=== PATIENT | female | born 1970 | race Caucasian/White ===

== ENCOUNTER → 2016-12-05 | Outpatient (CLI) | payer OTHER ==
[2016-12-06 12:28] LABS: Salmon IgE <0.35 kU/L (<0.35); Salmon IgE Class CLASS 0
[2016-12-12 08:29] LABS: Mis test requested (Blood) Walleye IgE
[2016-12-13 08:08] LABS: Mis test requested (Blood) Whitefish IgE
[2016-12-16 10:27] LABS: Mis test requested (Blood) Perch IgE
== END ==
LOC: LABWHC1 08:04
PROVIDERS: ATTEND Otolaryngology
DX: L50.0 Allergic urticaria (principal); J30.89 Other allergic rhinitis; B44.89 Other forms of aspergillosis
CPT/HCPCS: 36415; 86003

== ENCOUNTER → 2018-02-23 | Outpatient (CLI) | payer BC ==
--- NOTE | 2018-02-24 00:26 | MR ---
EXAMINATION TYPE: MR cspine/lspine wo con DATE OF EXAM: 02/23/2018 COMPARISON: NONE HISTORY: Neck and rt arm pain/weakness, LBP, left leg numbness/drop foot TECHNIQUE: Multiplanar, multisequence imaging of the lumbar spine and cervical spine is performed wit hout IV contrast. FINDINGS: The cervical vertebra have normal spacing and alignment. The posterior elements are intact. Cervical spinal cord has normal signal pattern. There is no evidence of edema. There is no spinal st enosis. Brainstem appears normal. There is no compression fracture. There is developmentally adequate spinal canal. There is no cervical paraspinal mass. The lumbar vertebra have normal spacing and alignment. Posterior elements are intact. Lumbar nerve ro ots appear normal. There is developmentally large spinal canal. The neural foramina appear widely pat ent. There is no lumbar paraspinal mass. There is no compression fracture. The visualized sacroiliac joints appear normal. IMPRESSION: Negative MR scan of the cervical spine. Negative MR scan of the lumbar spine.
== END | disposition home or self-care (01) ==
LOC: RADMRIMAIN 19:29
PROVIDERS: ATTEND Psychiatry & Neurology Neurology
DX: M54.12 Radiculopathy, cervical region (principal); M54.16 Radiculopathy, lumbar region
CPT/HCPCS: 72141; 72148

== ENCOUNTER 2019-08-11 07:40 | Day surgery (SDC) | payer BC ==
[2019-08-10 10:09] VITALS: BMI 29.7
[~2019-08-11 07:40] MED LIST: LACTATED RINGERS 1,000 ML IV SCH; LIDOCAINE 1% 20 ML VIAL (10MG/ML) FOR IV START INTRADERMA PRN
[2019-08-11 08:26] VITALS: TEMP 99
--- NOTE | 2019-08-11 08:29 | P.GSHP ---
History of Present Illness H&P Date: 08/11/19 CHIEF COMPLAINT: Colon screen HISTORY OF PRESENT ILLNESS: The patient is a 49-year-old female who presents for colon screen. Lower endoscopy was offered for further evaluation and management. PAST MEDICAL HISTORY: Please see list. PAST SURGICAL HISTORY: Please see list. MEDICATIONS: Please see list. ALLERGIES: Please see list. SOCIAL HISTORY: No illicit drug use FAMILY HISTORY: No reports of Crohn disease or ulcerative colitis. REVIEW OF ORGAN SYSTEMS: CONSTITUTIONAL: No reports of fevers or chills. PHYSICAL EXAM: VITAL SIGNS: Stable GENERAL: Well-developed pleasant in no acute distress. HEENT: No scleral icterus. Extraocular movements grossly intact. Moist buccal mucosa. NECK: Supple without lymphadenopathy. CHEST: Unlabored respirations. Equal bilateral excursions. CARDIOVASCULAR: Regular rate and rhythm. Distal 2+ pulses. ABDOMEN: Soft, nontender, nondistended. MUSCULOSKELETAL: No clubbing, cyanosis, or edema. ASSESSMENT: 1. Colon screen. PLAN: 1. Recommend proceeding with a lower endoscopy Past Medical History Past Medical History: Asthma, Diabetes Mellitus Additional Past Medical History / Comment(s): DIABETES- NO MEDS-WATCHES DIET., FREQUENT DIARRHEA. History of Any Multi-Drug Resistant Organisms: None Reported Past Surgical History: Hysterectomy, Orthopedic Surgery Additional Past Surgical History / Comment(s): PARTIAL HYSTERECOMY, ARTHROSCOPY SURGERY MARQUISE KNEES AND HIPS Past Anesthesia/Blood Transfusion Reactions: No Reported Reaction Additional Past Anesthesia/Blood Transfusion Reaction / Comment(s): STATES OCCASIONAL VERTIGO. ANXIETY WITH ANESTHESIA Past Psychological History: Anxiety Smoking Status: Former smoker Past Alcohol Use History: None Reported Additional Past Alcohol Use History / Comment(s): QUIT SMOKING 2011, SMOKED 2 PPD., STARTED SMOKING AGE 15. Past Drug Use History: None Reported - Past Family History Father Family Medical History: Cancer Additional Family Medical History / Comment(s): UNKNOWN TYPE OF CANCER Medications and Allergies Home Medications Medication Instructions Recorded Confirmed Type Atorvastatin Calcium [Lipitor] 20 mg PO HS 08/10/19 08/11/19 History Red Yeast Rice 1 dose PO DIRECTED 08/10/19 08/10/19 History Allergies Allergy/AdvReac Type Severity Reaction Status Date / Time No Known Allergies Allergy Verified 08/10/19 10:02 Surgical - Exam Vital Signs Temp Pulse Resp BP Pulse Ox 99.0 F 80 18 115/57 94 L 08/11/19 08:22 08/11/19 08:22 08/11/19 08:22 08/11/19 08:22 08/11/19 08:22
[2019-08-11] MEDS ORDERED: PROPOFOL 10 MG/ML 20 ML VIAL IV ONE (08:40)
[2019-08-11 09:12] VITALS: RESP 16
[2019-08-11 09:32] VITALS: BP 131/85; PULSE 64
--- NOTE | 2019-08-11 09:43 | P.PCN ---
Date of Procedure: 08/11/19 Description of Procedure: PREOPERATIVE DIAGNOSIS: Colonoscopy screening, first POSTOPERATIVE DIAGNOSIS: Colonoscopy screening, first Sigmoid diverticulosis Rectal polyp OPERATION: Colonoscopy with hot snare polypectomy at rectum Colonoscopy to the ileocecal valve SURGEON: Chrystal Pelayo MD. ANESTHESIA: MAC. INDICATIONS: The patient is a 49-year-old female who presents for her first colonoscopy screening. Benefits and risks were described and informed consent was obtained. DESCRIPTION OF PROCEDURE: The patient had undergone Golytely prep. She had been brought into the operating room and laid in the left lateral decubitus position. After adequate intravenous sedation, the rectum was examined with 2% lidocaine jelly. No external hemorrhoids were encountered. The rectal tone was within normal limits. No lesions were palpated in the rectal vault. An Olympus colonoscope was advanced until the ileocecal valve was clearly viewed. The prep was good. The scope was removed with visualization of each mucosal fold. Sigmoid diverticulosis was encountered. At 10 cm, a rectal colonic polyp of 8 mm with snare polypectomy. No evidence of focal colitis was found. Retroflexion of the scope demonstrated no internal hemorrhoids. The colon was desufflated. The patient had tolerated the procedure well. Withdrawal time was over 6 minutes. FINDINGS: Aronchick preparation quality scale 2 (1-5) No internal hemorrhoids No external prolapsed hemorrhoids. No arteriovenous malformations. Removal of 1 polyp: -At 10 cm, a rectal colon polyp of 8 mm with snare polypectomy. No focal colitis. Sigmoid diverticulosis with moderate redundancy RECOMMENDATIONS: Lower endoscopy in 3 years2021 Plan - Discharge Summary New Discharge Prescriptions: No Action Atorvastatin Calcium [Lipitor] 20 mg PO HS Red Yeast Rice 1 dose PO DIRECTED Discharge Medication List Atorvastatin Calcium [Lipitor] 20 mg PO HS 08/10/19 [History] Red Yeast Rice 1 dose PO DIRECTED 08/10/19 [History] Follow up Appointment(s)/Referral(s): Chrystal Pelayo MD [STAFF PHYSICIAN] - As Needed Patient Instructions/Handouts: Colorectal Polyps (DC), Diverticulosis Diet (GEN), Diverticulosis (DC) Activity/Diet/Wound Care/Special Instructions: Repeat colonoscopy 3 years, 2021 Discharge Disposition: HOME SELF-CARE
== END 2019-08-11 09:46 | disposition home or self-care (01) ==
LOC: ORWHC2ENDO 07:40
PROVIDERS: ATTEND Surgery Plastic and Reconstructive Surgery
DX: Z12.11 Encounter for screening for malignant neoplasm of colon (principal); K57.30 Diverticulosis of large intestine without perforation or abscess without bleeding; K62.1 Rectal polyp; K64.8 Other hemorrhoids; E11.9 Type 2 diabetes mellitus without complications; J45.909 Unspecified asthma, uncomplicated; F41.9 Anxiety disorder, unspecified; E78.5 Hyperlipidemia, unspecified; Z79.899 Other long term (current) drug therapy; Z87.891 Personal history of nicotine dependence; Z90.710 Acquired absence of both cervix and uterus; Z98.890 Other specified postprocedural states
CPT/HCPCS: 88305; 45385; J2704

== ENCOUNTER → 2019-10-06 | Outpatient (CLI) | payer BC ==
--- NOTE | 2019-10-06 13:35 | BD ---
EXAMINATION TYPE: Axial Bone Density DATE OF EXAM: 10/06/2019 COMPARISON: NONE CLINICAL HISTORY: Height: 5 FT 7 IN Weight: 197 FRAX RISK QUESTIONS: Alcohol (3 or more units per day): NO Family History (Parent hip fracture): NO Glucocorticoids (More than 3mos): YES (Ex: prednisone, prednisolone, methylprednisolone, dexamethasone, and hydrocortisone). History of Fracture in Adulthood: NO Secondary Osteoporosis: 1. Type 1 Diabetes: NO 2. Hyperthyroidism: NO 3. Menopause before 45: YES 4. Malnutrition: NO 5. Chronic liver disease: NO Rheumatoid Arthritis: NO Current Tobacco Use: NO RISK FACTORS HISTORY OF: Active: YES Postmenopausal woman: OVARIES REMOVED ONLY AT 38 MEDICATIONS: Additional Medications: LIPITOR Additional History: EXAM MEASUREMENTS: Bone mineral densitometry was performed using the [employer]. Bone mineral density as measured about the Lumbar spine is: ----- L1-L4(G/cm2): 1.177 T Score Values are as follows: ----- L2: -0.3 ----- L3: 0.1 ----- L4: -0.1 ----- L1-L4: 0.0 BASELINE Bone mineral density about the R hip (g/cm2): 1.161 Bone mineral density about the L hip (g/cm2): 1.137 T Score values are as follows: -----R Neck: 0.9 -----L Neck: 0.7 -----R Total: 2.0 -----L Total: 1.9 BASELINE IMPRESSION: Normal (Values between +1 and -1 indicate normal bone mass). Consider repeating this study in 5 year s or sooner if there is some new clinical indication. NOTE: T-SCORE=SD OF THE YOUNG ADULT MEAN.
--- NOTE | 2019-10-07 14:06 | MM ---
Reason for exam: screening (asymptomatic). History: Patient is postmenopausal. Reductions of both breasts. Benign excisional biopsy of both breasts. Took hormonal contraceptives for 25 years. Physical Findings: A clinical breast exam by your physician is recommended on an annual basis and results should be correlated with mammographic findings. MG Screening Mammo w CAD Bilateral CC and MLO view(s) were taken. No prior studies available for comparison. The breast tissue is heterogeneously dense. This may lower the sensitivity of mammography. Benign appearing bilateral calcifications. There is also a 2mm group of upper slightly outer right calcifications 11cm from nipple and left 1.2cm group of upper outer quadrant calcifications 11-12cm from nipple. 7mm right lateral asymmetry 9cm from nipple. ASSESSMENT: Incomplete: need additional imaging evaluation, BI-RAD 0 RECOMMENDATION: Ultrasound of both breasts. [facility] will attempt to contact patient to return for ultrasound.
== END | disposition home or self-care (01) ==
LOC: RADMAMWWP 08:09
PROVIDERS: ATTEND Obstetrics & Gynecology
DX: Z12.31 Encounter for screening mammogram for malignant neoplasm of breast (principal); N95.1 Menopausal and female climacteric states
CPT/HCPCS: 77067; 77080

== ENCOUNTER → 2019-10-19 | Outpatient (CLI) | payer BC ==
--- NOTE | 2019-10-20 13:16 | MM ---
Reason for exam: additional evaluation requested from abnormal screening. Last mammogram was performed less than 1 month ago. History: Patient is postmenopausal. Reductions of both breasts. Benign excisional biopsy of both breasts. Took hormonal contraceptives for 25 years. Physical Findings: Nurse did not find any significant physical abnormalities on exam. MG Work Up Mamm w CAD BILAT Bilateral CC with magnification, LM with magnification, and LM view(s) were taken. Spot compression CC view(s) were taken of the right breast. Prior study comparison: October 06, 2019, bilateral MG screening mammo w CAD. The breast tissue is heterogeneously dense. This may lower the sensitivity of mammography. There is a 6mm group of lower outer quadrant calcifications on the right that are pleomorphic, biopsy recommended. On the left there area loosely grouped calcifications spanning 10mm. Few of these layer. Precautionary 6 month follow up for the non-layering calcifications. The previously seen abnormality resolves on additional views and appears as fibroglandular tissue compatible with summation on the right breast. These results were verbally communicated with the patient and result sheet given to the patient on 10/19/19. ASSESSMENT: Suspicious, BI-RAD 4 RECOMMENDATION: Stereotactic core biopsy of the right breast. Called Dr. Corrigan's office with mammographic findings and has scheduled an appointment for the patient for 11/16/19 at 10:[address] Pelayo. Biopsy scheduled for 10/21/19 at 10:20. PRELIMINARY REPORT CALLED AND FAXED TO DR. PELAYO ON 10/20/19.
== END | disposition home or self-care (01) ==
LOC: RADMAMWWP 14:47
PROVIDERS: ATTEND Obstetrics & Gynecology
DX: R92.8 Other abnormal and inconclusive findings on diagnostic imaging of breast (principal)
CPT/HCPCS: 77066

== ENCOUNTER → 2019-10-21 | Day surgery (SDC) | payer BC ==
[2019-10-21 09:41] VITALS: RESP 16
[2019-10-21 11:18] VITALS: BP 102/71; PULSE 78; TEMP 97.5
--- NOTE | 2019-10-21 13:19 | MM ---
EXAMINATION TYPE: MG stereo VAD BX RT DATE OF EXAM: 10/21/2019 COMPARISON: Mammogram dated 10/19/2019 CLINICAL HISTORY: Indeterminate right breast calcifications for which dedicated guided biopsy was recommended. TECHNIQUE: Stereotactic guided core biopsy of right breast. FINDINGS: The procedure of stereotactic guided core biopsy was explained to the patient. Benefits, alternatives, and risks were discussed. An informed consent was then obtained. Preprocedural timeout was performed. The shortness pathway for biopsy was chosen. Shortness pathway was CC from below approach. Preprocedural localization images were obtained and a 6 mm group of calcifications within the lower outer quadrant of the right breast was demonstrated. Coordinates were calculated. Subsequently 10 cc of lidocaine without epinephrine was utilized to anesthetize the skin and deeper subcutaneous soft tissues. The needle was advanced to the appropriate depth. Prefire images were obtained ensuring appropriate location. Postfire injection of 10 cc of lidocaine with epinephrine was utilized to anesthetize the site of biopsy. A vacuum assisted biopsy gun was used to obtain 7 core samples. Only few calcifications were identified in the sample. 3 additional core samples were obtained however no further samples were obtained given patient pain and movement throughout the exam. The patient tolerated the procedure well without any immediate complication. The patient was kept in the radiology department for short stay after the procedure and then discharged home in stable condition. Few targeted calcifications are identified in specimen mammogram. Post biopsy mammogram shows the T-shaped biopsy marker to appear in satisfactory position relative to the targeted area of concern on the preprocedure images without migration. IMPRESSION: SUCCESSFUL, UNCOMPLICATED STEREOTACTIC GUIDED CORE BIOPSY OF A NEW INTERMEDIATE SUSPICION A 6 MM GROUP OF CALCULATIONS WITHIN THE LOWER OUTER QUADRANT OF THE RIGHT BREAST, FULL PATHOLOGY RESULTS TO FOLLOW. Pathology Results: Benign RIGHT BREAST, NEEDLE CORE BIOPSIES: Benign breast parenchyma with fibroadenomatoid changes and fibrocystic spectrum disease. Multifocal intraductal mineralizations are noted. Recommendation Follow up mammogram of both breasts in 6 months. 6 month follow up diagnostic mammogram bilaterally. (Right breast: 6 month post biopsy follow up) (Left breast: 6 month for probably benign calcifications) MTDD
== END ==
LOC: RADMAMWWP 09:11
PROVIDERS: ATTEND Surgery Plastic and Reconstructive Surgery
DX: D24.1 Benign neoplasm of right breast (principal); N60.11 Diffuse cystic mastopathy of right breast; N64.89 Other specified disorders of breast
CPT/HCPCS: 88305; 19081; A4648; J2001

== ENCOUNTER → 2020-07-13 | Outpatient (CLI) | payer BC ==
--- NOTE | 2020-07-18 09:37 | MM ---
Reason for exam: additional evaluation requested from prior study. Last mammogram was performed 9 months ago. History: Patient is postmenopausal. Benign MG stereo VAD BX RT of the right breast, October 21, 2019. Reductions of both breasts, 1991. Benign excisional biopsy of both breasts. Took hormonal contraceptives for 25 years. Physical Findings: Nurse did not find any significant physical abnormalities on exam. MG Diagnostic Mammo w CAD MARQUISE Bilateral CC and MLO view(s) were taken. Prior study comparison: October 19, 2019, bilateral MG work up mamm w CAD BILAT. October 06, 2019, bilateral MG screening mammo w CAD. The breast tissue is heterogeneously dense. This may lower the sensitivity of mammography. Finding: There are typically benign dystrophic, round calcifications in both breasts. There is a group of heterogeneous calcifications that persists 13mm superior to clip. These results were verbally communicated with the patient and result sheet given to the patient on 07/13/20. ASSESSMENT: Suspicious, BI-RAD 4 RECOMMENDATION: Stereotactic core biopsy of the right breast. Called Dr. Lock's office with mammographic findings and has scheduled an appointment for the patient for 08/03/20 at 1:[address] Meneses. Biopsy scheduled for 08/10/20 at 8:00. PRELIMINARY REPORT CALLED AND FAXED TO DR. MENESES ON 07/18/20.
== END | disposition home or self-care (01) ==
LOC: RADMAMWWP 12:32
PROVIDERS: ATTEND Family Medicine
DX: N64.89 Other specified disorders of breast (principal)
CPT/HCPCS: 77066

== ENCOUNTER → 2020-12-04 | Outpatient (CLI) | payer BC ==
[2020-12-04 12:15] LABS: HCT 43.3 % (34.0-46.0); HGB 14.7 gm/dL (11.4-16.0); MCH 30.8 pg (25.0-35.0); MCHC 33.9 g/dL (31.0-37.0); Mean Platelet Volume 7.1; Platelet Count 300 k/uL (150-450); RBC 4.76 m/uL (3.80-5.40); RDW 13.3 % (11.5-15.5); WBC 10.9 k/uL (3.8-10.6)
[2020-12-04 12:25] LABS: African American GFR (CKD) >90 (>60 ml/min/1.73 sqM); Anion Gap 8 mmol/L; Blood Urea Nitrogen 17 mg/dL (7-17); Carbon Dioxide 29 mmol/L (22-30); Chloride 99 mmol/L (98-107); Non-African American GFR(CKD) 86 (>60 ml/min/1.73 sqM); Potassium 4.3 mmol/L (3.5-5.1); Sodium 136 mmol/L (137-145)
== END | disposition home or self-care (01) ==
LOC: LABPAT 10:15
PROVIDERS: ATTEND Internal Medicine Clinical Cardiac Electrophysiology
DX: Z01.812 Encounter for preprocedural laboratory examination (principal); I48.0 Paroxysmal atrial fibrillation
CPT/HCPCS: 80051; 82565; 84520; 85027

== ENCOUNTER 2020-12-14 09:38 | Day surgery (SDC) | payer BC ==
[2020-12-11 15:54] VITALS: BMI 30.5
[~2020-12-14 09:38] MED LIST changes: -LACTATED RINGERS 1,000 ML IV SCH; -LIDOCAINE 1% 20 ML VIAL (10MG/ML) FOR IV START INTRADERMA PRN; +SODIUM CHLORIDE 0.9% 1,000 ML IV SCH
[2020-12-14 10:00] LABS: Glucose,Whole Blood 131 mg/dL (75-99)
[2020-12-14] MEDS ORDERED: MIDAZOLAM 2 MG/2 ML VIAL IVP ONE (10:04)
[2020-12-14 10:51] LABS: Basophils # (A) 0.1 k/uL (0-0.2); Basophils % (A) 1 %; Eosinophils # (A) 0.2 k/uL (0-0.7); Eosinophils % (A) 2 %; HCT 43.7 % (34.0-46.0); HGB 14.8 gm/dL (11.4-16.0); Lymphocytes # (A) 2.2 k/uL (1.0-4.8); Lymphocytes % (A) 22 %; MCH 29.9 pg (25.0-35.0); MCHC 33.8 g/dL (31.0-37.0); MCV 88.4 fL (80.0-100.0); Monocytes # (A) 0.8 k/uL (0-1.0); Monocytes % (A) 8 %; Neutrophils # (A) 6.9 k/uL (1.3-7.7); Neutrophils % (A) 67 %; Platelet Count 292 k/uL (150-450); RBC 4.95 m/uL (3.80-5.40); RDW 13.9 % (11.5-15.5); WBC 10.3 k/uL (3.8-10.6)
[2020-12-14] MEDS ORDERED: LIDOCAINE 1% INJ 10MG/ML (20 ML MDV) ONE (13:15)
[2020-12-14] MEDS ORDERED: LIDOCAINE 1% INJ 10MG/ML (20 ML MDV) SQ ONE (13:49)
[2020-12-14] MEDS ORDERED: fentaNYL (PF) 50 MCG/ML 2 ML AMP ONE (13:50)
[2020-12-14] MEDS ORDERED: MIDAZOLAM 2 MG/2 ML VIAL ONE (13:50)
[2020-12-14] MEDS ORDERED: PROPOFOL 10 MG/ML 20 ML VIAL IV ONE (13:50)
[2020-12-14] MEDS ORDERED: SUCCINYLCHOLINE CHLORIDE 100 MG/5 ML SYR IV ONE (13:50)
[2020-12-14] MEDS ORDERED: HEPARIN SODIUM,PORCINE 5,000 UNIT/ML 1 ML VIAL ONE (13:50)
[2020-12-14] MEDS ORDERED: ALBUTEROL HFA INHALER INHALATION PRN (15:17)
[2020-12-14] MEDS ORDERED: HYDROcodone/APAP 5-325MG 1 EACH TAB PO PRN (15:23)
--- NOTE | 2020-12-14 15:29 | P.EPPROC ---
- EP Procedure Note Electrophysiology Procedure Note: Diagnosis Paroxysmal atrial fibrillation Atrial tachycardia, paroxysmal Symptomatic History of hypertension and type 2 diabetes On ELIQUIS 5 mg twice daily Result Pedunculated mobile mass in the left atrial appendage on intracardiac echo Coronary sinus electrograms reveal an atrial tachycardia cycle length of about 220 ms, concentric activation Normal LV and RV size and function, no pericardial effusion on intracardiac echo Common left-sided pulmonary veins A. fib ablation procedure aborted on account of left atrial appendage thrombus Details Patient was brought to the EP lab in a fasting state with informed consent was obtained prior to the procedure the right groin is prepped and draped as a protocol venous sheaths were placed in the right femoral veins Via this a coronary sinus catheter was placed in the coronary sinus. Patient was in an atrial tachycardia cycle length of about 220 ms, with concentric activation In intracardiac echo cath was placed No pericardial effusion noted Pedunculated mobile pus in the left atrial appendage noted Normal LV and RV size and function noted In view of the left atrial appendage pedunculated mobile mass consistent with a thrombus, the procedure was aborted This was discussed with the patient's Plan Switched Pradaxa 150 g twice daily Aspirin 81 mg by mouth daily Continue diltiazem and flecainide Repeat MERARY in 6 weeks If no mass or thrombus then proceed with cryoablation of the pulmonary veins and atrial tachycardia ablation
--- NOTE | 2020-12-14 15:31 | P.PRLE ---
RE: Meera Grimes Dear Nancie Estes underwent a diagnostic EP study and at the outset replaced and intracardiac echo catheter in the right atrium to evaluate for intracardiac mass or thrombi She has a pedunculated, mobile mass in the left atrial appendage consistent with a left atrial appendage thrombus She is on ELIQUIS 5 g twice daily At this point we did not proceed any further with the EP study and ablation. I would recommend Switching to Pradaxa 150 mg twice daily since it has a slightly different mechanism of anticoagulant action as compared to allow pus Adding aspirin 81 mg by mouth daily Continue all other cardiac medications We will perform a MERARY in about 6 weeks and once we ensured that the left atrial appendage thrombus has resolved, only then will be proceed with in A. fib ablation Thank you for entrusting me with the care of the patient Warm regards Sincerely Gonzalo Guerrero
[2020-12-14 15:58] LABS: Glucose,Whole Blood 94 mg/dL (75-99)
[2020-12-14] MEDS: DILTIAZEM 125 MG in SODIUM CHLORIDE 0.9% 100 ML IV SCH (16:15)
[2020-12-14] MEDS ORDERED: ACETAMINOPHEN IV (For NPO) 1,000 MG in EMPTY BAG 1 BAG IVPB ONE (17:00)
[2020-12-14] MEDS: DILTIAZEM CD 240 MG CAP.ER.24H PO SCH (17:32)
[2020-12-14] MEDS: ACETAMINOPHEN TAB 325 MG TAB PO PRN (19:41)
[2020-12-14] MEDS: DABIGATRAN 150 MG CAP PO SCH (19:42)
[2020-12-14] MEDS: FLECAINIDE 50 MG TAB PO SCH (19:42)
[2020-12-14] MEDS: ASPIRIN 325 MG TAB PO SCH (19:43)
[2020-12-14] MEDS: SYMBICORT 80-4.5 MCG INHALER INHALATION SCH (20:17)
[2020-12-14] MEDS: LINAGLIPTIN 5 MG TABLET PO SCH (21:10)
[2020-12-14 21:30] LABS: Glucose,Whole Blood 148 mg/dL (75-99)
[2020-12-14] MEDS ORDERED: HYDROmorphone 0.5 MG/0.5 ML SYRINGE IVP STA (21:36)
[2020-12-15] MEDS: DILTIAZEM 125 MG in SODIUM CHLORIDE 0.9% 100 ML IV SCH ×3 (06:03→16:28)
[2020-12-15 06:30] LABS: Glucose,Whole Blood 106 mg/dL (75-99)
[2020-12-15] MEDS: ATORVASTATIN 40 MG TAB PO SCH (09:01)
[2020-12-15] MEDS: DABIGATRAN 150 MG CAP PO SCH ×2 (09:01→20:46)
[2020-12-15] MEDS: ASPIRIN 325 MG TAB PO SCH (09:02)
[2020-12-15] MEDS: DILTIAZEM CD 240 MG CAP.ER.24H PO SCH (09:02)
[2020-12-15] MEDS: FLECAINIDE 50 MG TAB PO SCH ×2 (09:02→20:46)
[2020-12-15] MEDS: ACETAMINOPHEN TAB 325 MG TAB PO PRN (09:02)
[2020-12-15] MEDS: VICTOZA SQ SCH (09:04)
[2020-12-15] MEDS: SYMBICORT 80-4.5 MCG INHALER INHALATION SCH ×2 (09:13→20:06)
[2020-12-15] MEDS ORDERED: DILTIAZEM CD 120 MG CAP.ER.24H PO STA (10:56)
[2020-12-15] MEDS: HYDROmorphone 1 MG/ML 1 ML SYRINGE IVP PRN ×4 (11:18→22:54)
[2020-12-15 12:13] LABS: Glucose,Whole Blood 101 mg/dL (75-99)
--- NOTE | 2020-12-15 12:14 | P.PN ---
Subjective Progress Note Date: 12/15/20 HISTORY OF PRESENT ILLNESS: This is a 50-year-old female who was scheduled to undergo elective ablation. Patient was found to have a pedunculated mobile mass in the left atrial appen dage. Ablation was aborted. Patient was switched to Pradaxa twice a day and aspirin was added to her medication regimen. Patient remains in atrial flutter this morning. Heart rate is controlled. She remains on IV Cardizem at 10 mg an hour. Patient states she has been Eliquis since April 2020. She reports being compliant her with medications and not missing any doses of Eliquis. PHYSICAL EXAM: VITAL SIGNS: Reviewed. GENERAL: Well-developed in no acute distress. NECK: Supple. No JVD or thyromegaly LUNGS: Respirations even and unlabored. Lungs essentially clear to auscultation bilaterally. HEART: Irregular rate and rhythm. S1 and S2 heard. EXTREMITIES: Normal range of motion. No clubbing or cyanosis. Peripheral pulses intact. No lower extremity edema. Right groin with small hematoma present and tenderness with palpation. No hematoma of left groin. ASSESSMENT: Left atrial appendage thrombus, s/p failed therapy with Eliquis Paroxysmal atrial fibrillation Paroxysmal atrial tachycardia Hypertension Diabetes mellitus PLAN: Continue IV Cardizem until tomorrow Increase Cardizem CD to 360 mg daily Continue flecainide Continue Pradaxa 150 mg twice a day and aspirin 81 mg daily Fem stop to right groin. Apply for 3 hours, then remove for 2 hours and let patient ambulate, then repeat process until tomorrow morning Case management verifying coverage of Pradaxa which requires prior authorization per Further recommendations pending patient course Nurse practitioner note has been reviewed by physician. Signing provider agrees with the documented findings, assessment, and plan of care. Objective - Vital Signs Vital signs: Vital Signs Temp 98.2 F 12/15/20 11:00 Pulse 81 12/15/20 11:00 Resp 16 12/15/20 11:00 BP 91/56 12/15/20 11:00 Pulse Ox 97 12/15/20 11:00 Intake & Output 12/14/20 12/15/20 12/15/20 18:59 06:59 18:59 Intake Total 670 900 120 Output Total 1150 1450 Balance -480 -550 120 Weight 89.4 kg 91.3 kg Intake: IV 670 Invasive Line 1 10 Invasive Line 2 10 Intake, IV Titration 160 Amount Sodium Chloride 0.9% 1, 160 000 ml @ 20 mls/hr IV . Q24H [facility] Rx#:[id number] Oral 740 120 Output: Urine 1150 1450 Uretheral (Quarles) 1000 Other: Voiding Method Indwelling Catheter Indwelling Catheter # Voids 1 - Labs CBC & Chem 7: 12/14/20 10:00 Labs: Abnormal Lab Results - Last 24 Hours (Table) 12/14/20 12/15/20 Range/Units 20:21 06:17 POC Glucose (mg/dL) 148 H 106 H (75-99) mg/dL
[2020-12-15 17:01] LABS: Glucose,Whole Blood 169 mg/dL (75-99)
[2020-12-15 20:07] LABS: Glucose,Whole Blood 126 mg/dL (75-99)
[2020-12-15] MEDS: LINAGLIPTIN 5 MG TABLET PO SCH (20:46)
[2020-12-16] MEDS: DILTIAZEM 125 MG in SODIUM CHLORIDE 0.9% 100 ML IV SCH (02:11)
[2020-12-16 04:04] VITALS: RESP 16
[2020-12-16] MEDS: HYDROmorphone 1 MG/ML 1 ML SYRINGE IVP PRN (04:12)
[2020-12-16 07:09] LABS: Glucose,Whole Blood 133 mg/dL (75-99)
[2020-12-16] MEDS: SYMBICORT 80-4.5 MCG INHALER INHALATION SCH (08:09)
[2020-12-16] MEDS: FLECAINIDE 50 MG TAB PO SCH (08:40)
[2020-12-16] MEDS: DABIGATRAN 150 MG CAP PO SCH (08:41)
[2020-12-16] MEDS: ATORVASTATIN 40 MG TAB PO SCH (08:41)
[2020-12-16] MEDS: VICTOZA SQ SCH (08:42)
[2020-12-16] MEDS ORDERED: ASPIRIN 81 MG PO SCH (09:00)
[2020-12-16] MEDS ORDERED: DILTIAZEM CD 180 MG CAP.ER.24H PO SCH (09:00)
[2020-12-16 11:57] LABS: Glucose,Whole Blood 210 mg/dL (75-99)
--- NOTE | 2020-12-16 12:01 | P.DS ---
Providers Attending physician: Gonzalo Guerrero Primary care physician: [facility] Course: This is a 50-year-old female who was scheduled to undergo elective ablation. Patient was found to have a pedunculated mobile mass in the left atrial appendage. Ablation was aborted. Patient was switched to Pradaxa 150mg twice a day and aspirin was added to her medication regimen. She is to continue Cardizem and flecainide. Patient is to have a repeat MERARY done in 6 weeks. If no mass or thrombus noted within proceed with cryoablation of the pulmonary veins and atrial tachycardia ablation. The patient was discharged home today in stable condition. Please see EMR for further hospital course details Discharge Diagnosis Left atrial appendage thrombus Paroxysmal atrial fibrillation Paroxysmal atrial tachycardia Hypertension Diabetes mellitus Nurse practitioner note has been reviewed by physician. Signing provider agrees with the documented findings, assessment, and plan of care. Plan - Discharge Summary Discharge Rx Participant: No New Discharge Prescriptions: New Dabigatran [Pradaxa] 150 mg PO BID #60 cap Aspirin 81 mg PO DAILY #60 chewable Continue Diltiazem HCl [Diltiazem HCl 24Hr ER (Cd)] 240 mg PO DAILY Flecainide Acetate [Tambocor] 100 mg PO Q12HR Atorvastatin [Lipitor] 40 mg PO DAILY Discontinued Apixaban [Eliquis] 5 mg PO BID No Action Victoza 1.8 ml SQ QAM Albuterol Inhaler [Ventolin Hfa Inhaler] 2 puff INHALATION RT-TID PRN PRN Reason: Shortness Of Breath sitaGLIPtin [Januvia] 100 mg PO HS Budesonide/Formoterol Fumarate [Symbicort 80-4.5 Mcg Inhaler] 2 puff INHALATION BID Discharge Medication List Albuterol Inhaler [Ventolin Hfa Inhaler] 2 puff INHALATION RT-TID PRN 12/11/20 [History] Atorvastatin [Lipitor] 40 mg PO DAILY 12/11/20 [History] Budesonide/Formoterol Fumarate [Symbicort 80-4.5 Mcg Inhaler] 2 puff INHALATION BID 12/11/20 [History] Diltiazem HCl [Diltiazem HCl 24Hr ER (Cd)] 240 mg PO DAILY 12/11/20 [History] Flecainide Acetate [Tambocor] 100 mg PO Q12HR 12/11/20 [History] Victoza 1.8 ml SQ QAM 12/11/20 [History] sitaGLIPtin [Januvia] 100 mg PO HS 12/11/20 [History] Aspirin 81 mg PO DAILY #60 chewable 12/15/20 [Rx] Dabigatran [Pradaxa] 150 mg PO BID #60 cap 12/15/20 [Rx] Follow up Appointment(s)/Referral(s): Gonzalo Guerrero MD [STAFF PHYSICIAN] - 1 Week Patient Instructions/Handouts: Atrial Flutter (ED), Transesophageal Echocardiogram (DC) Activity/Diet/Wound Care/Special Instructions: Pradaxa covered by insurance and [facility]
[2020-12-16 12:12] VITALS: BP 99/64; PULSE 98; TEMP 98
== END 2020-12-16 13:55 | disposition home or self-care (01) ==
LOC: CATHEP 09:38 → 3SCARD 14:50 → CATHEP 12-16 13:55
PROVIDERS: ATTEND Internal Medicine Clinical Cardiac Electrophysiology
DX: I48.0 Paroxysmal atrial fibrillation (principal); I51.3 Intracardiac thrombosis, not elsewhere classified; I48.3 Typical atrial flutter; I47.1 Supraventricular tachycardia; I10 Essential (primary) hypertension; E11.9 Type 2 diabetes mellitus without complications; Z79.01 Long term (current) use of anticoagulants; E78.5 Hyperlipidemia, unspecified; Z82.49 Family history of ischemic heart disease and other diseases of the circulatory system; Z72.0 Tobacco use; Z79.84 Long term (current) use of oral hypoglycemic drugs; Z79.51 Long term (current) use of inhaled steroids; Z79.899 Other long term (current) drug therapy; Z88.0 Allergy status to penicillin
CPT/HCPCS: 94640 ×3; 93662; 93620; 85025; C1769 ×4; C1894 ×2; C1730; C1759; C1893; C1766; J2250; J1644; J2001; J3010; J1170 ×3; J0131; J0330; J2704; 93619

== ENCOUNTER → 2021-01-22 | Outpatient (CLI) | payer BC ==
[2021-01-22 11:18] LABS: HCT 37.8 % (34.0-46.0); HGB 13.1 gm/dL (11.4-16.0); MCHC 34.7 g/dL (31.0-37.0); MCV 89.4 fL (80.0-100.0); Mean Platelet Volume 7.2; Platelet Count 397 k/uL (150-450); RBC 4.23 m/uL (3.80-5.40); WBC 11.7 k/uL (3.8-10.6)
[2021-01-22 11:29] LABS: Potassium 4.4 mmol/L (3.5-5.1)
== END | disposition home or self-care (01) ==
LOC: LABPAT 09:28
PROVIDERS: ATTEND Internal Medicine Clinical Cardiac Electrophysiology
DX: Z01.812 Encounter for preprocedural laboratory examination (principal); I48.0 Paroxysmal atrial fibrillation
CPT/HCPCS: 36415; 80051; 82565; 84520; 85027

== ENCOUNTER 2021-01-30 06:16 | Day surgery (SDC) | payer BC ==
[2021-01-30 06:53] VITALS: TEMP 98.2
[2021-01-30] MEDS ORDERED: SODIUM CHLORIDE 0.9% 500 ML 500 ML IV ONE (06:54)
[2021-01-30 06:56] LABS: Glucose,Whole Blood 135 mg/dL (75-99)
[2021-01-30] MEDS ORDERED: fentaNYL (PF) 50 MCG/ML 2 ML AMP ONE (07:17)
[2021-01-30] MEDS: BENZOCAINE SPRAY 1 CAN MUCOUS MEM ONE ×2 (07:32→07:46)
[2021-01-30] MEDS ORDERED: MIDAZOLAM 2 MG/2 ML VIAL IV ONE ×2 (07:49→07:53)
[2021-01-30] MEDS: fentaNYL (PF) 50 MCG/ML 2 ML AMP IV ONE ×2 (07:49→07:51)
[2021-01-30 08:03] VITALS: RESP 16
--- NOTE | 2021-01-30 08:29 | P.TEE ---
Description of Procedure(s): Procedure performed: Transesophageal Echocardiogram with color flow doppler, pulsed wave doppler and continuous wave doppler, moderate conscious sedation Moderate conscious sedation: Moderate conscious sedation was supplied with direct supervision of myself using Versed and Fentanyl. Complications: none Indications: Left atrial appendage thrombus History: Patient is a pleasant 50-year-old female with history of hypertension, hyperlipidemia, diabetes mellitus type 2, paroxysmal atrial fibrillation. She has been fairly symptomatic from atrial fibrillation and therefore was evaluated by Dr. Guerrero who performed ICE which showed a pedunculated ROCIO mass/ thrombus. She was placed on Pradaxa and aspirin and was scheduled for repeat MERARY to evaluate if there is any thrombus or mass. PROCEDURE: After the risks, benefits and alternatives of the above mentioned procedure was explained in detail with the patient, informed consent was obtained. Patient was brought to the lab in a fasting state. Patient was given IV Versed and Fentanyl for sedation. The throat was sprayed with Hurricane to anesthetize the throat. A lubricated Omni probe was then introduced into the esophagus and stomach and multiple views were obtained. 2D echo with color flow doppler, pulsed wave doppler and continuous wave doppler was utilized. Agitated saline bubbles were injected to assess for any intra-atrial shunt. The probe was then removed. Patient tolerated the procedure well. Patient was transferred to the post procedure area in stable and satisfactory condition. FINDINGS: 1. The aortic valve is tricuspid and functions normal without any stenosis or regurgitation. 2. The mitral valve appears be normal with trace mitral regurgitation. 3. Tricuspid valve appears to be normal. 4. There is a small PFO noted. 5. Left atrial appendage is free of clot. 6. Left ventricular size and function appear to be normal with ejection fraction 60%.
[2021-01-30 08:40] VITALS: PULSE 112
[2021-01-30 09:15] VITALS: BP 99/64
== END 2021-01-30 09:17 | disposition home or self-care (01) ==
LOC: CATHCVL 06:16
PROVIDERS: ATTEND Internal Medicine
DX: I51.3 Intracardiac thrombosis, not elsewhere classified (principal); I48.0 Paroxysmal atrial fibrillation; I34.0 Nonrheumatic mitral (valve) insufficiency; E78.5 Hyperlipidemia, unspecified; Z20.822 Contact with and (suspected) exposure to COVID-19; Z82.49 Family history of ischemic heart disease and other diseases of the circulatory system; I10 Essential (primary) hypertension; E11.9 Type 2 diabetes mellitus without complications; Z72.0 Tobacco use; Q21.1 Atrial septal defect; Z79.01 Long term (current) use of anticoagulants; Z79.02 Long term (current) use of antithrombotics/antiplatelets; Z79.82 Long term (current) use of aspirin; Z79.51 Long term (current) use of inhaled steroids; Z79.899 Other long term (current) drug therapy; Z88.0 Allergy status to penicillin
CPT/HCPCS: 93312; 93320; 93325; 87635; J2250; J3010

== ENCOUNTER 2021-02-12 09:46 | Day surgery (SDC) | payer BC ==
[2021-02-08 10:56] VITALS: BMI 30.5
[2021-02-12 10:13] LABS: Glucose,Whole Blood 132 mg/dL (75-99)
[2021-02-12 10:27] LABS: Basophils # (A) 0.1 k/uL (0-0.2); Basophils % (A) 1 %; Eosinophils # (A) 0.2 k/uL (0-0.7); Eosinophils % (A) 3 %; HGB 13.9 gm/dL (11.4-16.0); Lymphocytes # (A) 1.5 k/uL (1.0-4.8); Lymphocytes % (A) 15 %; MCH 31.2 pg (25.0-35.0); MCHC 34.6 g/dL (31.0-37.0); Mean Platelet Volume 6.9; Monocytes # (A) 0.5 k/uL (0-1.0); Monocytes % (A) 5 %; Neutrophils # (A) 7.4 k/uL (1.3-7.7); Neutrophils % (A) 76 %; Platelet Count 293 k/uL (150-450); RBC 4.45 m/uL (3.80-5.40); RDW 14.1 % (11.5-15.5); WBC 9.8 k/uL (3.8-10.6)
[2021-02-12] MEDS ORDERED: MIDAZOLAM 2 MG/2 ML VIAL IVP ONE ×4 (11:10→11:32)
[2021-02-12] MEDS ORDERED: diazePAM 5 MG TAB PO STA (12:42)
[2021-02-12] MEDS ORDERED: diazePAM 5 MG TAB PO ONE (13:11)
[2021-02-12] MEDS ORDERED: LOPERAMIDE 2 MG CAP PO STA (13:13)
[2021-02-12 13:22] LABS: African American GFR (CKD) >90 (>60 ml/min/1.73 sqM); Anion Gap 10 mmol/L; Blood Urea Nitrogen 13 mg/dL (7-17); Calcium 9.8 mg/dL (8.4-10.2); Carbon Dioxide 23 mmol/L (22-30); Chloride 107 mmol/L (98-107); Glucose 110 mg/dL (74-99); Magnesium 1.9 mg/dL (1.6-2.3); Non-African American GFR(CKD) 89 (>60 ml/min/1.73 sqM); Potassium 4.1 mmol/L (3.5-5.1); Sodium 140 mmol/L (137-145)
[2021-02-12] MEDS ORDERED: HEPARIN SODIUM,PORCINE 10,000 UNIT/ML 1 ML VIAL ONE (16:39)
[2021-02-12] MEDS ORDERED: ROCURONIUM 10 MG/ML (5 ML VIAL) IV ONE (16:39)
[2021-02-12] MEDS ORDERED: PROTAMINE SULFATE 10 MG/ML 5 ML VIAL IV ONE ×2 (16:39→19:31)
[2021-02-12] MEDS ORDERED: SUCCINYLCHOLINE CHLORIDE 100 MG/5 ML SYR IV ONE (16:39)
[2021-02-12] MEDS ORDERED: MIDAZOLAM 2 MG/2 ML VIAL ONE (16:39)
[2021-02-12] MEDS ORDERED: FUROSEMIDE 10 MG/ML 2 ML VIAL ONE (16:39)
[2021-02-12] MEDS ORDERED: fentaNYL (PF) 50 MCG/ML 2 ML AMP ONE (16:39)
[2021-02-12] MEDS ORDERED: PROPOFOL 10 MG/ML 20 ML VIAL IV ONE (16:39)
[2021-02-12] MEDS ORDERED: LIDOCAINE 1% INJ 10MG/ML (20 ML MDV) ONE (16:39)
[2021-02-12] MEDS ORDERED: PHENYLEPHRINE-0.9% NACL SYG 1,000 MCG/10 ML SYRINGE ONE (16:39)
[2021-02-12] MEDS ORDERED: LIDOCAINE 1% INJ 10MG/ML (20 ML MDV) SQ ONE (17:11)
[2021-02-12] MEDS ORDERED: HEPARIN SOD,PORK IN 0.45% NACL 25,000 UNIT in 0.45% NACL 1 250ML.BAG IV ONE (17:18)
[2021-02-12] MEDS ORDERED: HEPARIN SODIUM (1,000 UNIT/ML) 1,000 UNIT in SODIUM CHLORIDE 0.9% 1,000 ML IRRIGATION ONE (17:21)
[2021-02-12] MEDS ORDERED: SODIUM CHLORIDE 0.9% 1,000 ML IV ONE (18:15)
[2021-02-12] MEDS ORDERED: IOPAMIDOL-370 50ML BTL INJ ONE (19:26)
[2021-02-12 19:30] LABS: Glucose,Whole Blood 133 mg/dL (75-99)
--- NOTE | 2021-02-12 19:49 | P.HPCAR ---
History of Present Illness This is Dr. Guerrero dictating an H/P on this patient The patient was interviewed and examined IMPRESSION / ASSESSMENT: Paroxysmal atrial fibrillation, drug refractory Symptomatic typical atrial flutter Left atrial appendage thrombus which has resolved on Pradaxa Recent MERARY did not show any left atrial appendage thrombus Watery diarrhea since this morning, normal electrolytes normal blood pressure PLAN: Will proceed with A. fib ablation once the diarrhea subsides and electrolytes are normal Rectal management system to be applied HPI Patient has a history of recurrent symptomatic atrial fibrillation She has also had documented typical atrial flutter in November of this year She has failed and draped with drug therapy She also developed a left atrial appendage thrombus on ELIQUIS The switch to Pradaxa and a follow-up MERARY did not show any left atrial appendage thrombus She been complaining of loose watery stools and she says they're not 1 lm is However she had to go to the bathroom on multiple occasions today and therefore we delayed the procedure until loose stools had subsided Subsequently a fecal management system was applied to keep the groin area from becoming contaminated We will proceed with an A. fib ablation if electrolytes are normal ROS: No fever chills or rigors, no cough, phlegm or expectoration, no nausea, vomiting or diarrhea, no hematuria, dysuria, no musculoskeletal complaints, no strokes or seizures, no skin lesions. EXAMINATION: Afebrile 98.7, pulse rate 100, respirations normal pulse ox normal Abdomen is soft nontender Breath sounds are clear no rhonchi no crackles Heart sounds S1 and S2 are normal mildly tachycardic No lower extremity edema No JVD REVIEW OF LABS, ECG & MEDICAL DATA Hemoglobin 13.9, white count normal 9.8 thousand, platelet count 293,000 Sodium 140, potassium 4.1, BUN 13 and creatinine 0.8 Magnesium 1.9 Physical Exam Vitals: Vital Signs Temp Pulse Resp Pulse Ox 02/12/21 10:20 98.7 F 100 18 95 Intake and Output 02/12/21 02/12/21 02/12/21 06:59 14:59 22:59 Intake Total 700 937 Output Total 50 Balance 700 887 Intake: IV 700 937 Output: Urine 50 Other: Weight 90 kg Past Medical History Past Medical History: Atrial Flutter, Asthma, Diabetes Mellitus, Hyperlipidemia, Osteoarthritis (OA) Additional Past Medical History / Comment(s): KIDNEY STONES, VERTIGO WHEN LOOKING UP OR TURNING HEAD TO THE RIGHT., ENVIRONMENTAL ALLERGIES, STATES LOW BLOODPRESSURE., SEE Dr Guerrero CARDIOLOGY H & P. History of Any Multi-Drug Resistant Organisms: None Reported Past Surgical History: Breast Surgery, Hysterectomy, Orthopedic Surgery Additional Past Surgical History / Comment(s): oophorectomy. ARTHROSCOPY SURGERY MARQUISE KNEES. bilateral breast reduction Past Anesthesia/Blood Transfusion Reactions: No Reported Reaction, Motion Sic kness Additional Past Anesthesia/Blood Transfusion Reaction / Comment(s): ANXIETY WITH ANESTHESIA- FEAR OF NOT WAKING UP Smoking Status: Former smoker - Past Family History Father Family Medical History: Cancer Additional Family Medical History / Comment(s): UNKNOWN TYPE OF CANCER Physical Examination Vital Signs Temp Pulse Resp Pulse Ox 02/12/21 10:20 98.7 F 100 18 95 Intake and Output 02/12/21 02/12/21 02/12/21 06:59 14:59 22:59 Intake Total 700 937 Output Total 50 Balance 700 887 Intake: IV 700 937 Output: Urine 50 Other: Weight 90 kg Results 02/12/21 10:10 02/12/21 12:50 CBC 02/12/21 Range/Units 10:10 WBC 9.8 (3.8-10.6) k/uL RBC 4.45 (3.80-5.40) m/uL Hgb 13.9 (11.4-16.0) gm/dL Hct 40.0 (34.0-46.0) % Plt Count 293 (150-450) k/uL Comprehensive Metabolic Panel 02/12/21 Range/Units 12:50 Sodium 140 (137-145) mmol/L Potassium 4.1 (3.5-5.1) mmol/L Chloride 107 (98-107) mmol/L Carbon Dioxide 23 (22-30) mmol/L BUN 13 (7-17) mg/dL Creatinine 0.78 (0.52-1.04) mg/dL Glucose 110 H (74-99) mg/dL Calcium 9.8 (8.4-10.2) mg/dL Current Medications Generic Name Dose Route Start Last Admin Trade Name Freq PRN Reason Stop Dose Admin Sodium Chloride 1,000 mls @ 50 mls/hr 02/12/21 06:05 02/12/21 10:13 Saline 0.9% IV 03/14/21 06:06 1,000 mls .Q20H ELIAS Administration Intake and Output 02/12/21 02/12/21 02/12/21 06:59 14:59 22:59 Intake Total 700 937 Output Total 50 Balance 700 887 Intake: IV 700 937 Output: Urine 50 Other: Weight 90 kg Patient Weight 02/13/21 06:59 Weight 90 kg 02/12/21 10:10 02/12/21 12:50
--- NOTE | 2021-02-12 19:54 | P.EPPROC ---
- EP Procedure Note Electrophysiology Procedure Note: PROCEDURE A. fib ablation DIAGNOSIS Atrial fibrillation, symptomatic, refractory to therapy Paroxysmal A. fib Symptomatic atrial flutter, typical documented in November 2020 RESULT Successful A. fib ablation/pulmonary vein isolation of all veins using cryo- ablation Complete entrance block in all 4 veins confirmed No evidence for phrenic nerve injury Typical atrial flutter ablation Esophageal deflection YES Electrical cardioversion with a synchronized shock across the chest NO PROCEDURE DETAILS Patient was brought to the EP lab in a fasting state. Written informed consent was obtained prior to the procedure. Procedure performed under general anesthesia After initial muscle relaxant use, muscle relaxants were not given thereafter in order to assess phrenic nerve during procedure. Patient prepped and draped as per protocol Full cryo-set up with standard preparation of the cryoablation tools done. Femoral Venous access obtained on the right and left groins Venous and arterial Sheaths placed. Diagnostic catheters for the high right atrium, phrenic nerve stimulation and pacing, His bundle, RV and coronary sinus placed Intracardiac echo catheter placed. Long sheath placed in the right atrium Left and right transseptal catheterization performed under intracardiac echo g uidance. Intravenous heparin with aCT above 300 Later, catheter positioning and balloon positioning in the left atrium, under intracardiac echo guidance Diagnostic EP study with Drug infusion Coronary sinus pacing and recording Baseline measurements sinus cycle length 680 ms, NC 180 ms, QRS 99 ms, QT 382 ms AH 50 ms and HV interval 46 ms Atrial pacing performed from the high right atrium and the coronary sinus RV pacing VA Wenckebach block 290 ms AV node Wenckebach block 360 ms Zahida response to Parahisian pacing Sinus node recovery times at 600, 504 100 ms were 817, 879 and 1010 ms. Co rrected sinus node recovery times normal High-dose Isuprel Burst ablation from the coronary sinus and from the high right atrium No inducible atrial fibrillation at the end of the procedure Transseptal catheterization performed RA pressure 94/7 LA pressure 14/4/9 Transseptal catheterization performed with standard sheath. The cryoablation sheath was then placed with an over the wire exchange without any acute complications. All 4 pulmonary veins were isolated in the following sequence: Left superior followed by left inferior followed by right superior followed by right inferior The cryo-ablation balloon was placed at the os of each vein 1.5 mL of IV dye was injected to confirm an occluded vein Goal during cryoablation was to achieve complete occlusion of the pulmonary vein, achieve -30 degrees C at 30 seconds and achieve -40 degrees C at 60 seconds and a time to effect of less than 60-90 seconds, . If not the balloon was repositioned to obtain this result After completion of Cryoblation with durations from 180-240 seconds, entrance block was confirmed with the Attain circular catheter in a roving fashion around the antrum of the pulmonary veins Phrenic nerve pacing was performed from the SVC, right innominate vein area and diaphragm voltage was monitored. Diaphragmatic contractions were also monitored manually for strength of contraction. Parameter goals for each cryo freeze Complete occlusion of the appropriate vein -30 degrees C by 30 seconds -40 degrees C by 60 seconds Minimum between minus 40-55 degrees C Thaw time greater than 10 seconds Balloon visualized by intracardiac echo The esophagus was intubated. Esophageal Temperature monitoring with a CIRCA catheter formed. Esophageal deflection for hypothermia of the esophagus below 30 degrees C Left superior pulmonary vein, large, common left-sided pulmonary vein Segmental approach [id number] isolate the entire vein Complete isolation, entrance block Right superior pulmonary vein, during phrenic nerve pacing Complete isolation, entrance block Right inferior pulmonary vein, during phrenic nerve pacing Complete isolation, entrance block At the end of the procedure the Achieve catheter was once again used to check for entrance block Phrenic nerve stimulation was performed to confirm diaphragmatic stimulation the end of the procedure Cine fluoroscopy was performed at the very end of the procedure to confirm movement of both diaphragms with inspiration and expiration RF ablation catheter placed in the right atrium 3-D electro-anatomic mapping performed The cavo tricuspid isthmus was a short isthmus shaped like a pouch Using the reverse loop technique, RF ablation was applied and a complete line of block was made After the anatomic line was complete Differential pacing was performed to document bidirectional block Isthmus conduction time greater than 160 ms in each direction At the end of the procedure the patient was extubated Heparin was reversed Venous sheaths were removed and hemostasis assured PROCEDURES PERFORMED Diagnostic EP study CS pacing and recording Left and right transseptal catheterization Catheter the mapping of the tachycardia (NOT 3D mapping) Intracardiac echocardiography Pulmonary vein isolation with transseptal and comprehensive EPS, [id number] Ablation of discrete arrhythmia focus, typical atrial flutter, +[id number] Drug Infusion +[id number]
--- NOTE | 2021-02-12 19:56 | P.PRLE ---
RE: Meera Grimes Dear Nancie Meera underwent a diagnostic EP study followed by pulmonary vein isolation and typical atrial flutter ablation A pulmonary veins were rendered completely inactive Bidirectional block was proven across atrial flutter Thereafter a detailed EP study was performed on and off Isuprel and no atrial fibrillation could be induced However she has a history of left atrial appendage thrombus on ELIQUIS and therefore she will continue Pradaxa lifelong I will stop flecainide today and plan to reduce the dose of Cardizem in the future if she does not have any recurrences of atrial fibrillation Thank you for entrusting me with the care of the patient Warm regards Sincerely Gonzalo Guerrero
[2021-02-12] MEDS ORDERED: ALBUTEROL HFA INHALER INHALATION PRN (19:57)
[2021-02-12] MEDS ORDERED: LINAGLIPTIN 5 MG TABLET PO SCH (21:00)
[2021-02-12] MEDS ORDERED: ATORVASTATIN 40 MG TAB PO SCH (21:00)
[2021-02-12] MEDS: DABIGATRAN 150 MG CAP PO SCH (21:45)
[2021-02-12 21:49] LABS: Glucose,Whole Blood 140 mg/dL (75-99)
[2021-02-12] MEDS ORDERED: Acetaminophen-Codeine 300-30mg TAB PO STA (22:01)
[2021-02-13 03:02] VITALS: RESP 18
[2021-02-13 06:48] LABS: Glucose,Whole Blood 117 mg/dL (75-99)
[2021-02-13 06:55] VITALS: BP 102/67; PULSE 76; TEMP 98.2
[2021-02-13] MEDS: DABIGATRAN 150 MG CAP PO SCH (07:26)
[2021-02-13] MEDS ORDERED: SYMBICORT 80-4.5 MCG INHALER INHALATION SCH (08:00)
[2021-02-13] MEDS ORDERED: NON FORMULARY DRUG (Liraglutide [Victoza 2-Pak] 0.6 MG/0.1 ML Pen.Injctr) SQ SCH (09:00)
[2021-02-13] MEDS ORDERED: ASPIRIN 81 MG PO SCH (09:00)
[2021-02-13] MEDS ORDERED: DILTIAZEM CD 180 MG CAP.ER.24H PO SCH (09:00)
--- NOTE | 2021-02-13 11:00 | P.DS ---
Providers Attending physician: Gonzalo Guerrero Primary care physician: [facility] Course: INTERVAL HISTORY: The patient is a 50-year-old female with a past medical history of paroxysmal atrial fibrillation, symptomatic typical atrial flutter, left atrial appendage which has resolved on Pradaxa admitted to the hospital by Dr. Guerrero. Patient underwent successful atrial fibrillation ablation/pulmonary vein isolation of all veins using cryo-ablation with Dr. Guerrero yesterday. Patient seen and examined at bedside. Complains of sore throat and right groin pain which is expected. PHYSICAL EXAMINATION: Blood pressure 102/67, heart rate 76, respirations 18, temp 98.2F. Patient is 93% on room air Telemetry reviewed- patient in sinus mechanism HR 70-80s HEART: S1, S2 normal. LUNGS: Clear to auscultation. NECK: Supple. ABDOMEN: Soft. EXTREMITIES: 2+ peripheral pulses. Right Groin and Left groin site tender to palpation, no hematoma, clean dry intact. FINAL IMPRESSION: Paroxysmal atrial fibrillation, drug refractory Symptomatic typical atrial flutter Status Post Successful A. fib ablation/pulmonary vein isolation of all veins using cryo-ablation 02/12/21 Left atrial appendage thrombus which has resolved on Pradaxa Recent MERARY did not show any left atrial appendage thrombus Watery diarrhea since this morning, normal electrolytes normal blood pressure PLAN: Patient may be able to be discharged home today. Stop flecainide today and plan to reduce the dose of Cardizem in the future if she does not have any recurrences of atrial fibrillation. Continue home Cardizem for now. She has a history of left atrial appendage thrombus on Eliquis and therefore she will continue Pradaxa lifelong We will make him a follow-up appointment with Dr. Guerrero in 2 weeks. Plan - Discharge Summary Discharge Rx Participant: No New Discharge Prescriptions: Continue Liraglutide [Victoza 2-José Miguel] 1.8 mg SQ DAILY Atorvastatin [Lipitor] 40 mg PO HS Albuterol Inhaler [Ventolin Hfa Inhaler] 2 puff INHALATION RT-TID PRN PRN Reason: Shortness Of Breath sitaGLIPtin [Januvia] 100 mg PO HS Budesonide/Formoterol Fumarate [Symbicort 80-4.5 Mcg Inhaler] 2 puff INHALATION BID Dabigatran [Pradaxa] 150 mg PO BID #60 cap Aspirin 81 mg PO QAM Diltiazem HCl [Cardizem CD] 360 mg PO QAM Discontinued Flecainide Acetate [Tambocor] 100 mg PO Q12HR Discharge Medication List Albuterol Inhaler [Ventolin Hfa Inhaler] 2 puff INHALATION RT-TID PRN 12/11/20 [History] Atorvastatin [Lipitor] 40 mg PO HS 12/11/20 [History] Budesonide/Formoterol Fumarate [Symbicort 80-4.5 Mcg Inhaler] 2 puff INHALATION BID 12/11/20 [History] sitaGLIPtin [Januvia] 100 mg PO HS 12/11/20 [History] Dabigatran [Pradaxa] 150 mg PO BID #60 cap 12/15/20 [Rx] Liraglutide [Victoza 2-José Miguel] 1.8 mg SQ DAILY 01/29/21 [History] Aspirin 81 mg PO QAM 01/30/21 [History] Diltiazem HCl [Cardizem CD] 360 mg PO QAM 02/08/21 [History] Follow up Appointment(s)/Referral(s): Gonzalo Guerrero MD [STAFF PHYSICIAN] - 03/02/21 9:30 am (Follow Dr. Guerrero/Dara Villar within 2 weeks) Activity/Diet/Wound Care/Special Instructions: Post EP study - Ablation instructions 1. Keep access sites dry for 2 days. 2. No heavy lifting or straining for 2 days. 3. Avoid bending the hips repeatedly for 2 days. 4. You may go up and down stairs slowly Call if the following is noted 1. Bleeding, increasing swelling or pain at the access sites. 2. Increasing chest discomfort, especially upon taking a deep breath. 3. Increasing shortness of breath, at rest or with exertion. 4. Undue cough / phlegm 5. Difficulty or pain while swallowing. 6. Pain or change in color in the extremities. 7. Fever, chills, rigors. 8. Increasing headache or neurologic symptoms. 9. Dizziness, fainting, palpitations Stop flecainide Do not stop aspirin Do not stop Pradaxa Continue all other medications including Cardizem Discharge Disposition: HOME SELF-CARE
[2021-02-13 12:05] LABS: Glucose,Whole Blood 110 mg/dL (75-99)
== END 2021-02-13 13:02 | disposition home or self-care (01) ==
LOC: CATHEP 09:46 → 6NMEDSUR 20:16 → CATHEP 02-13 13:02
PROVIDERS: ATTEND Internal Medicine Clinical Cardiac Electrophysiology
DX: I48.0 Paroxysmal atrial fibrillation (principal); I48.3 Typical atrial flutter; E11.9 Type 2 diabetes mellitus without complications; E78.5 Hyperlipidemia, unspecified; Z20.822 Contact with and (suspected) exposure to COVID-19; I51.3 Intracardiac thrombosis, not elsewhere classified; Z82.49 Family history of ischemic heart disease and other diseases of the circulatory system; Z87.891 Personal history of nicotine dependence; Z87.442 Personal history of urinary calculi; M19.90 Unspecified osteoarthritis, unspecified site; J45.909 Unspecified asthma, uncomplicated; Z90.721 Acquired absence of ovaries, unilateral; Z79.01 Long term (current) use of anticoagulants; Z79.82 Long term (current) use of aspirin; Z79.84 Long term (current) use of oral hypoglycemic drugs; Z79.02 Long term (current) use of antithrombotics/antiplatelets; Z79.899 Other long term (current) drug therapy; Z88.0 Allergy status to penicillin
CPT/HCPCS: 94640; 93623; 93662; 93613; 93655; 93656; 80048; 83735; 85025; 87635; C1769 ×4; C1894 ×2; C1730 ×2; C1893; C1733; C1766; C1732; J2250; J2720; J1644 ×3; J1940; J2001; J3010; J2370; J0330; J2704; Q9967

== ENCOUNTER → 2022-04-02 | Outpatient (CLI) | payer BC ==
--- NOTE | 2022-04-02 12:50 | MR ---
EXAMINATION TYPE: MR brain wo con DATE OF EXAM: 04/02/2022 12:43 PM COMPARISON: NONE HISTORY: Fatigue, vertigo, memory loss FINDINGS: The ventricles, basal cisterns and sulci overlying the cerebral convexities are minimally enlarged. There is evidence of minimal periventricular white matter ischemic demyelination. Remote deep white matter insults are also noted. No acute edema is seen on diffusion weighted imaging. There is no evidence for midline shift or mass effect. Acute intracranial hemorrhage or extra-axial collection is not evident. The paranasal sinuses and mastoid air cells are well-aerated. IMPRESSION: Age-related atrophic and chronic small vessel ischemic change. No acute intracranial process at this time.
== END | disposition home or self-care (01) ==
LOC: RADMRIMAIN 11:30
PROVIDERS: ATTEND Physician Assistant Medical
DX: R41.89 Other symptoms and signs involving cognitive functions and awareness (principal); R53.83 Other fatigue
CPT/HCPCS: 70551

== ENCOUNTER → 2022-04-08 | Outpatient (CLI) | payer BC ==
--- NOTE | 2022-04-09 07:50 | CA ---
Transthoracic Echo Report Name: Meera Grimes Age: 51 Gender: F : 1970 Exam Date: 04/08/2022 10:45 Exam Location: [facility] Ht (in): 67 Wt (lb): 200 Ordering Physician: Shayla Carrillo MD Attending/Referring Phys: Kaylin Johnson PAC Pbx Technician Raven Bryant RDCS Procedure CPT: Indications: R53.83 Fatigue R41.89 Cardiac Hx: Technical Quality: Contrast 1: Total Dose (mL): Contrast 2: Total Dose (mL): MEASUREMENTS (Male / Female) Normal Values 2D ECHO LV Diastolic Diameter PLAX 4.3 cm 4.2 - 5.9 / 3.9 - 5.3 cm LV Systolic Diameter PLAX 2.6 cm IVS Diastolic Thickness 1.0 cm 0.6 - 1.0 / 0.6 - 0.9 cm LVPW Diastolic Thickness 1.3 cm 0.6 - 1.0 / 0.6 - 0.9 cm LV Relative Wall Thickness 0.5 RV Internal Dim ED PLAX 2.7 cm M-MODE Aortic Root Diameter MM 3.1 cm LA Systolic Diameter MM 4.6 cm LA Ao Ratio MM 1.5 AV Cusp Separation MM 2.1 cm DOPPLER AV Peak Velocity 119.2 cm/s AV Peak Gradient 5.7 mmHg LVOT Peak Velocity 92.3 cm/s LVOT Peak Gradient 3.4 mmHg MV Area PHT 4.1 cm??? Mitral E Point Velocity 65.3 cm/s Mitral A Point Velocity 43.8 cm/s Mitral E to A Ratio 1.5 MV Deceleration Time 183.3 ms MV E' Velocity 7.3 cm/s Mitral E to MV E' Ratio 9.0 TR Peak Velocity 211.5 cm/s TR Peak Gradient 17.9 mmHg Right Ventricular Systolic Press 22.2 mmHg FINDINGS Left Ventricle Mildly increased left ventricular wall thickness. Normal left ventricular systolic function with no obvious regional wall motion abnormalities. Normal left ventricular diastolic filling pattern. Left ventricular ejection fraction is estimated at 55-60 %. Right Ventricle Normal right ventricular size and function. Right ventricular systolic pressure within normal limits. Right Atrium Normal right atrial size. Left Atrium Normal left atrial size. Mitral Valve Structurally normal mitral valve. No mitral stenosis. Trace to mild mitral regurgitation. Aortic Valve Trileaflet aortic valve. No aortic valve stenosis or regurgitation. Tricuspid Valve Structurally normal tricuspid valve. Mild tricuspid regurgitation. Pulmonic Valve Trace pulmonic regurgitation. Pericardium Normal pericardium. Aorta Normal size aortic root and proximal ascending aorta. CONCLUSIONS Normal left ventricular ejection fraction 55-60% Mild LVH Trace mitral regurgitation Mild tricuspid regurgitation Previewed by: Dr. Drew Henderson DO (Electronically Signed) Final Date: 09 April 2022 07:49
== END | disposition home or self-care (01) ==
LOC: RADECHMAIN 10:15
PROVIDERS: ATTEND Family Medicine
DX: R41.89 Other symptoms and signs involving cognitive functions and awareness (principal); R53.83 Other fatigue
CPT/HCPCS: 93306

== ENCOUNTER 2022-08-19 07:47 | Day surgery (SDC) | payer BC ==
--- NOTE | 2022-08-18 22:26 | HP ---
HISTORY AND PHYSICAL DATE OF SURGERY: 08/19/2022. HISTORY OF PRESENT ILLNESS: Meera Grimes is a 52-year-old patient, seen with symptomatic left knee osteoarthritis. After treatment options were discussed, the patient elected to proceed with left total knee arthroplasty. Consent was obtained. Cardiac clearance was provided by Dr. Guerrero. PAST MEDICAL HISTORY: Cardiovascular disease, hypertension, hyperlipidemia, [id number] diabetes. PAST SURGICAL HISTORY: Hysterectomy, knee arthroscopy, cardiac ablation. DAILY MEDICATIONS: 1. Aspirin. 2. Losartan. 3. Pradaxa. 4. Symbicort. ALLERGIES: Amoxicillin. SOCIAL HISTORY: She denies tobacco use. PHYSICAL EVALUATION OF THE LEFT KNEE: Range of motion is -2 to 130. Mild effusion. Tenderness to medial joint line. Crepitus, medial patellofemoral compartments with range of motion. Pain with patellofemoral compression. Ligaments stable. Hip rotation without pain. Distal neurovascular exam intact. RADIOGRAPHS: Left knee radiographs revealed severe osteoarthritic changes. IMPRESSION: 1. Left knee osteoarthritis. 2. Hypertension. 3. Hyperlipidemia. 4. Cardiovascular disease. PLAN: Left total knee arthroplasty. MMODL / IJN: [id number] /
[~2022-08-19 07:47] MED LIST changes: +ACETAMINOPHEN TAB 500 MG TAB PO PRN; +MELOXICAM 7.5 MG TAB PO PRN; -SODIUM CHLORIDE 0.9% 1,000 ML IV SCH; +TRANEXAMIC ACID IN NACL,ISO-OS 1,000 MG in SALINE 1 100ML.BAG IVPB PRN
[2022-08-19] MEDS ORDERED: LIDOCAINE 1% (10MG/ML) FOR IV START INTRADERMA PRN (08:38)
[2022-08-19] MEDS ORDERED: DEXAMETHASONE SOD PHOSPHATE 4 MG/ML 1 ML VIAL IV ONE (08:38)
[2022-08-19] MEDS ORDERED: ONDANSETRON 4 MG/2 ML VIAL IVP ONE (08:38)
[2022-08-19] MEDS ORDERED: ONDANSETRON 4 MG/2 ML VIAL ONE (08:40)
[2022-08-19 08:56] LABS: Glucose,Whole Blood 129 mg/dL (70-110)
[2022-08-19] MEDS ORDERED: LIDOCAINE 1% (10MG/ML) FOR IV START INTRADERMA ONE (08:57)
[2022-08-19] MEDS: LACTATED RINGERS 1,000 ML IV SCH ×2 (08:57→09:55)
[2022-08-19] MEDS ORDERED: MIDAZOLAM 2 MG/2 ML VIAL IVP ONE (09:26)
[2022-08-19] MEDS ORDERED: fentaNYL (PF) 50 MCG/1 ML VIAL IVP ONE (09:31)
[2022-08-19] MEDS ORDERED: MIDAZOLAM 2 MG/2 ML VIAL ONE (09:53)
[2022-08-19] MEDS ORDERED: SODIUM CHLORIDE 0.9% (PF) 10 ML VIAL ONE (09:53)
[2022-08-19] MEDS ORDERED: ROPIVACAINE 5 MG/ML 30 ML VIAL ONE (09:53)
[2022-08-19] MEDS ORDERED: SUCCINYLCHOLINE CHLORIDE 200 MG/10 ML VIAL IV ONE (09:53)
[2022-08-19] MEDS ORDERED: PROPOFOL 10 MG/ML 20 ML VIAL IV ONE (09:53)
[2022-08-19] MEDS ORDERED: fentaNYL (PF) 50 MCG/ML 2 ML AMP ONE (09:53)
[2022-08-19] MEDS ORDERED: LIDOCAINE 2% INJ 20 MG/ML (2 ML VIAL) ONE (09:53)
[2022-08-19] MEDS ORDERED: TRANEXAMIC ACID IN NACL,ISO-OS 1,000 MG/100 ML BAG ONE (09:53)
[2022-08-19] MEDS ORDERED: ROCURONIUM 10 MG/ML (5 ML VIAL) IV ONE (09:53)
[2022-08-19] MEDS ORDERED: NEOSTIGMINE 1 MG/ML 10 ML VIAL ONE (09:53)
[2022-08-19] MEDS ORDERED: GLYCOPYRROLATE 0.2 MG/ML 2 ML VIAL ONE (09:53)
--- NOTE | 2022-08-19 10:10 | P.ANPRN ---
Procedure Note - Anesthesia - Nerve Block Performed Left Adductor Canal Time Out Performed: Yes () Date of Procedure: 08/19/22 Procedure Start Time: Procedure Stop Time: Location of Patient: PreOp Indication: Acute Post-Operative Pain, Requested by Surgeon (Dr Briggs) Sedation Type: Sedate with meaningful contact maintained Preparation: Sterile Prep, Sterile Dressing Position: Supine Catheter: Indwelling Needle Types: Pajunk Needle Gauge: 21 Ultrasound used to visualize needle placement: Yes Ultrasound used to observe medication spread: Yes Injectate: 0.5% Ropivacaine (see comment for volume) (15cc) Blood Aspirated: No Pain Paresthesia on Injection Noted: No Resistance on Injection: Normal Image Stored and Saved: Yes Events: Uneventful and Well Tolerated
[2022-08-19] MEDS ORDERED: ROPIVACAINE 0.2%-NS ON-Q PUMP 1,090 MG, EMPTY PAIN BALL 1 EACH MISCELLANE PRN (10:16)
--- NOTE | 2022-08-19 10:16 | P.ANPRN ---
Procedure Note - Anesthesia - Nerve Block Performed Left iPack Time Out Performed: Yes Date of Procedure: 08/19/22 Procedure Start Time: 09:34 Procedure Stop Time: 09:39 Location of Patient: PreOp Indication: Acute Post-Operative Pain, Requested by Surgeon (DR Briggs) Sedation Type: Sedate with meaningful contact maintained Preparation: Sterile Prep Position: Supine Catheter: None Needle Types: Pajunk Needle Gauge: 21 Ultrasound used to visualize needle placement: Yes Ultrasound used to observe medication spread: Yes Injectate: 0.5% Ropivacaine (see comment for volume) (15cc +5cc PF Normal saline) Blood Aspirated: No Pain Paresthesia on Injection Noted: No Resistance on Injection: Normal Image Stored and Saved: Yes Events: Uneventful and Well Tolerated
[2022-08-19] MEDS ORDERED: ceFAZolin 1,000 MG in SODIUM CHLORIDE 0.9% 1,000 ML IRRIGATION ONE (10:22)
[2022-08-19] MEDS ORDERED: HYDROmorphone 0.5 MG/0.5 ML SYRINGE IVP PRN ×2 (11:32)
[2022-08-19] MEDS ORDERED: NALOXONE 0.4 MG/ML 1 ML VIAL IV PRN (11:32)
[2022-08-19] MEDS ORDERED: ONDANSETRON 4 MG/2 ML VIAL IVP PRN (11:32)
[2022-08-19] MEDS ORDERED: HYDROcodone/APAP 5-325MG 1 EACH TAB PO PRN (11:32)
[2022-08-19] MEDS ORDERED: HYDROcodone/APAP 7.5-325MG 1 EACH TAB PO PRN (11:32)
[2022-08-19] MEDS ORDERED: LACTATED RINGERS 1,000 ML IV ONE (11:32)
[2022-08-19] MEDS ORDERED: HYDROmorphone 1 MG/ML 1 ML SYRINGE IVP PRN (11:32)
--- NOTE | 2022-08-19 11:32 | P.OP ---
Date of Procedure: 08/19/22 Preoperative Diagnosis: Left knee osteoarthritis Postoperative Diagnosis: Left knee osteoarthritis Procedure(s) Performed: Left total knee arthroplasty Implants: 1. Depuy attune size 5 narrow left cruciate retaining cemented femur 2. Depuy attune size 4 fixed bearing cemented tibial baseplate 3. Depuy attune size 5 fixed bearing cruciate retaining 5 mm polyethylene tibial insert 4. Depuy attune 35 mm all polyethylene cemented patella Anesthesia: GETA, regional (Adductor canal catheter, Ipack block) Surgeon: Jarret Briggs Cosmetic Assembler #1: Seng Dos Santos Estimated Blood Loss (ml): 45 Pathology: other (Bone) Condition: stable Disposition: PACU Indications for Procedure: 52-year-old patient seen with symptomatic left knee osteoarthritis. After treatment options were discussed, she elected to proceed with left total knee arthroplasty. Operative Findings: See description of procedure Description of Procedure: Patient was taken to the operative suite after having an adductor canal catheter placed by the department of anesthesia. Patient underwent a general anesthetic by the department of anesthesia. Patient was given preoperative IV intake antibiotics and TXA. A well-padded tourniquet was placed about the left lower extremity. The lower extremity was then prepped and draped in the normal sterile orthopedic fashion. The extremity was elevated, a tourniquet was insufflated to 300. A standard anterior incision was made sharply through skin. Dissection was taken down through the subcutaneous soft tissues down to the extensor mechanism. A medial arthrotomy was performed, patella was everted and knee was flexed. There was advanced osteoarthritis noted. I introduced my distal intramedullary femoral drill. I then introduced the distal femoral cutting jig. Sathya WINSLOW secured the cutting jig with 2 pins. I held retractors in position while Sathya WINSLOW performed the distal femoral resection through the guide area we now removed her distal femoral cutting guide. We now placed our 4-in-1 femoral cutting block and positioned and it was secured with 2 pins by Sathya WINSLOW while I held the block in position. The distal femoral finishing was now completed. A proximal tibial cutting guide was positioned. I held the guide in the appropriate position with both hands well Sathya WINSLOW inserted stabilizing pins into the guide. Proximal tibial cut was made. We now placed a trial femoral component into position, along with an appropriate size tibial tray and insert. We now took the knee through range of motion and had full extension good flexion and good overall soft tissue balance noted. The patella was everted and stabilized with 2 towel clips held by Sathya WINSLOW while I performed a flush with patellar quad tendon utilizing a fresh sawblade. We templated the patella, appropriate drill holes were made. An appropriate trial patella was positioned, knee was taken through full range of motion with the patella tracking very nicely. The trial patella was removed. Drill holes were made through the femoral component. All trial components were removed after marking off the appropriate rotation of the tibia. Retractors were now positioned along the proximal tibia. An appropriate keel punch was made with the appropriate size tibial guide by myself on Sathya WINSLOW assisted by holding retractors. At this point appropriate size implants were chosen and opened. The joint was irrigated copiously with pulse lavage mechanical irrigation. The wound was irrigated with pulse lavage mechanical irrigation. We mixed antibiotic methylmethacrylate. We placed the knee into flexion. We placed multiple retractors assisted by Sathya WINSLOW to expose the proximal tibia. Once the methyl methacrylate was ready, the tibial component was cemented into place removing any excess methylmethacrylate form by both myself and Sathya WINSLOW. The femoral component was cemented into place removing the removing any excess methylmethacrylate performed by both myself and Sathya WINSLOW. We then inserted the appropriate size polyethylene tibial insert. We made sure that it was locked into position. We took the knee into full extension, and then back in a flexion making sure we had removed any excess methylmethacrylate. The patellar component was then cemented down and secured with clamp. Excess methylmethacrylate removed. We kept the knee in full extension, patellar clamp in position until methylmethacrylate had hardened. Once it had hardened the patellar clamp was removed. The knee was taken through full range of motion. The patella tracked nicely. There was good soft tissue balancing. The tourniquet was now released. Additional hemostasis was achieved via electrocautery. A second gram of TXA was given. The wound again was irrigated with pulse lavage mechanical irrigation. The extensor mechanism was repaired with Ethibond suture. We checked the repair with range of motion and it was stable. The subcutaneous soft tissues were repaired with Vicryl in layers. The skin was approximated with pernio/Dermabond. Sterile dressings were applied followed by loose web roll and Tr bandage. The patient was transferred to a bed, and taken to recovery in stable and satisfactory condition. Sathya WINSLOW assisted with this complex procedure.
[2022-08-19] MEDS: HYDROmorphone 0.5 MG/0.5 ML SYRINGE IVP PRN ×3 (12:00→13:44)
[2022-08-19] MEDS ORDERED: KETOROLAC 15 MG/ML 1 ML VIAL IVP ONE (12:05)
[2022-08-19] MEDS ORDERED: diphenhydrAMINE 50 MG/ML 1 ML VIAL IVP ONE (12:21)
--- NOTE | 2022-08-19 12:28 | XR ---
EXAMINATION TYPE: XR knee limited LT DATE OF EXAM: 08/19/2022 COMPARISON: None HISTORY: Postop knee replacement TECHNIQUE: 2 view left knee FINDINGS: Tibial and femoral components of them place. No acute fracture is evident. Postsurgical sof t tissue changes are evident. IMPRESSION: 1. No acute fracture post left knee replacement.
[2022-08-19 12:38] VITALS: TEMP 97
[2022-08-19] MEDS ORDERED: HYDROcodone/APAP 7.5-325MG 1 EACH TAB PO ONE (15:02)
[2022-08-19 16:02] VITALS: RESP 20
[2022-08-19 16:34] VITALS: BP 129/83; PULSE 84
== END 2022-08-19 17:40 | disposition home health service (06) ==
LOC: OR 07:47
PROVIDERS: ATTEND Orthopaedic Surgery
DX: M17.12 Unilateral primary osteoarthritis, left knee (principal); G89.18 Other acute postprocedural pain; I10 Essential (primary) hypertension; E78.5 Hyperlipidemia, unspecified; E11.9 Type 2 diabetes mellitus without complications; J45.909 Unspecified asthma, uncomplicated; I48.92 Unspecified atrial flutter; I25.10 Atherosclerotic heart disease of native coronary artery without angina pectoris; Z98.890 Other specified postprocedural states; Z90.710 Acquired absence of both cervix and uterus; Z79.82 Long term (current) use of aspirin; Z88.0 Allergy status to penicillin; Z79.899 Other long term (current) drug therapy; Z79.51 Long term (current) use of inhaled steroids; Z79.84 Long term (current) use of oral hypoglycemic drugs; Z88.1 Allergy status to other antibiotic agents
CPT/HCPCS: 27447; 64448; 64999; 97530; 97161; 76942; 88300; 73560; C1776; C1713 ×2; C1751; J2250; J0330; J1200; J1100; J2710; J0690 ×2; J2405; J3010 ×2; J2795 ×2; J1885; J2704; J1170; J2001; 90935

== ENCOUNTER → 2023-04-03 | Outpatient (CLI) | payer BC ==
[2023-04-03 08:59] LABS: Partial Thromboplastin Time 41.3 sec (22.0-30.0); Prothrombin Time 10.9 sec (9.0-12.0)
[2023-04-03 12:11] LABS: Prealbumin 29.1 mg/dL (18.0-42.0)
[2023-04-03 12:22] LABS: % Iron Saturation 21.37 (12.00-45.00); ALT 32 U/L (8-44); AST 20 U/L (13-35); Albumin 4.6 d/dL (3.8-4.9); Albumin/Globulin Ratio 1.48 Ratio (1.60-3.17); Alkaline Phosphatase 138 U/L (41-126); BUN/Creat Ratio 29.33 Ratio (12.00-20.00); Blood Urea Nitrogen 17.6 mg/dL (9.0-27.0); Carbon Dioxide 22.8 mmol/L (21.6-31.8); Chloride 102 mmol/L (96-109); Chol/HDL Ratio 4.34 Ratio; Ferritin 30.2 ng/mL (10.0-291.0); Globulin 3.1 d/dL (1.6-3.3); Glucose 168 mg/dL (70-110); Iron 112 UG/DL (50-170); LDL Cholesterol,Calculated 104.2 mg/dL (0.0-131.0); Phosphorus 4.1 mg/dL (2.4-5.1); Potassium 4.2 mmol/L (3.5-5.5); Sodium 140 mmol/L (135-145); Total Bilirubin 0.3 mg/dL (0.3-1.2); Total Iron Binding Capacity 524 UG/DL (228-460); Total Protein 7.7 d/dL (6.2-8.2)
[2023-04-03 13:31] LABS: HCT 38.6 % (37.2-46.3); HGB 14.8 d/dL (12.0-15.0); MCH 37.1 pg (27.0-32.0); MCHC 38.3 d/dL (32.0-37.0); MCV 96.7 FL (80.0-97.0); Mean Platelet Volume 11.2 FL (9.5-12.2); NRBC Per 100 WBC 0 X 10*3/uL (0.00-0.01); Platelet Count 207 X 10*3/uL (140-440); RBC 3.99 X 10*6/uL (4.10-5.20); RDW 15.2 % (11.5-14.5)
[2023-04-04 09:23] LABS: Zinc, Serum 92 ug/dL (60-130)
[2023-04-05 14:35] LABS: Anabasine Urine <2.0 ng/mL (<2.0)
[2023-04-07 06:16] LABS: Vit B1(Thiamine) 82 ug/L (38-122)
[2023-04-07 12:31] LABS: Vitamin A 80 ug/dL (38-106)
== END | disposition home or self-care (01) ==
LOC: LABPAT 07:24
PROVIDERS: ATTEND Surgery Plastic and Reconstructive Surgery
DX: Z71.51 Drug abuse counseling and surveillance of drug abuser (principal); D50.8 Other iron deficiency anemias; K91.2 Postsurgical malabsorption, not elsewhere classified; E44.0 Moderate protein-calorie malnutrition; E44.1 Mild protein-calorie malnutrition; E55.9 Vitamin D deficiency, unspecified; K74.1 Hepatic sclerosis; N19 Unspecified kidney failure; T56.894A Toxic effect of other metals, undetermined, initial encounter; K50.90 Crohn's disease, unspecified, without complications
CPT/HCPCS: 80053; 80061; 80323; 82306; 82525; 82607; 82728; 82746; 83036; 83540; 83550; 83735; 83970; 84100; 84134; 84255; 84425; 84443; 84590; 84630; 85027; 85610; 85730; 93005

== ENCOUNTER 2023-05-05 07:36 | Day surgery (SDC) | payer BC ==
--- NOTE | 2023-05-05 07:39 | P.GSHP ---
History of Present Illness H&P Date: 05/05/23 CHIEF COMPLAINT: GERD and colon screen HISTORY OF PRESENT ILLNESS: The patient is a 53-year-old female who presents with gastroesophageal reflux disease and need for colon screen. Upper and lower endoscopy were offered for further evaluation and management. PAST MEDICAL HISTORY: Please see list. PAST SURGICAL HISTORY: Please see list. MEDICATIONS: Please see list. ALLERGIES: Please see list. SOCIAL HISTORY: No illicit drug use FAMILY HISTORY: No reports of Crohn disease or ulcerative colitis. REVIEW OF ORGAN SYSTEMS: CONSTITUTIONAL: No reports of fevers or chills. GI: Denies any blood in stools or constipation. PHYSICAL EXAM: VITAL SIGNS: Stable GENERAL: Well-developed pleasant in no acute distress. HEENT: No scleral icterus. Extraocular movements grossly intact. Moist buccal mucosa. NECK: Supple without lymphadenopathy. CHEST: Unlabored respirations. Equal bilateral excursions. CARDIOVASCULAR: Regular rate and rhythm. Distal 2+ pulses. ABDOMEN: Soft, nondistended. MUSCULOSKELETAL: No clubbing, cyanosis, or edema. ASSESSMENT: 1. Gastroesophageal reflux disease 2. Colon screen. PLAN: 1. Recommend proceeding with an upper and lower endoscopy Past Medical History Past Medical History: Atrial Flutter, Asthma, Diabetes Mellitus, Hyperlipidemia, Osteoarthritis (OA) Additional Past Medical History / Comment(s): KIDNEY STONES, VERTIGO WHEN LOOKING UP OR TURNING HEAD TO THE RIGHT. ENVIRONMENTAL ALLERGIES, STATES LOW BLOODPRESSURE., SEE Dr Guerrero CARDIOLOGY H & P. being worked up for gastric bypass surgery History of Any Multi-Drug Resistant Organisms: None Reported Past Surgical History: Breast Surgery, Cardiac Ablation, Hysterectomy, Joint Replacement, Orthopedic Surgery Additional Past Surgical History / Comment(s): 02/12/21 CARDIAC ABLATION. Oophorectomy total lft knee replacement. ARTHROSCOPY SURGERY MARQUSIE KNEES. bilateral breast reduction Past Anesthesia/Blood Transfusion Reactions: No Reported Reaction, Motion Sickness Additional Past Anesthesia/Blood Transfusion Reaction / Comment(s): ANXIETY WITH ANESTHESIA- FEAR OF NOT WAKING UP Smoking Status: Former smoker - Past Family History Father Family Medical History: Cancer Additional Family Medical History / Comment(s): UNKNOWN TYPE OF CANCER Medications and Allergies Home Medications Medication Instructions Recorded Confirmed Type Albuterol Inhaler [Ventolin Hfa 2 puff INHALATION RT-TID PRN 12/11/20 04/28/23 History Inhaler] Atorvastatin [Lipitor] 40 mg PO HS 12/11/20 04/28/23 History Budesonide/Formoterol Fumarate 2 puff INHALATION BID PRN 12/11/20 04/28/23 History [Symbicort 80-4.5 Mcg Inhaler] Dabigatran [Pradaxa] 150 mg PO BID #60 cap 12/15/20 04/28/23 Rx Azelastine HCl [Astepro] 1 spray NASAL BID 08/12/22 04/28/23 History Cholecalciferol [Vitamin D3 (25 1 tab PO DAILY 08/12/22 04/28/23 History Mcg = 1000 Iu)] Losartan [Cozaar] 50 mg PO HS 08/12/22 04/28/23 History Empagliflozin [Jardiance] 10 mg PO DAILY 04/02/23 04/28/23 History Allergies Allergy/AdvReac Type Severity Reaction Status Date / Time adhesive tape AdvReac Rash/Hives Verified 04/28/23 15:18 amoxicillin [From Augmentin] AdvReac severe Verified 04/28/23 15:18 Diarrhea clavulanic acid AdvReac severe Verified 04/28/23 15:18 [From Augmentin] Diarrhea Fish Containing Products AdvReac Unknown Verified 04/28/23 15:18
[2023-05-05] MEDS ORDERED: LIDOCAINE 1% (10MG/ML) FOR IV START INTRADERMA PRN (07:43)
[2023-05-05] MEDS ORDERED: LACTATED RINGERS 1,000 ML IV SCH (07:43)
[2023-05-05 07:52] VITALS: RESP 16; TEMP 97.7
[2023-05-05 08:07] LABS: Glucose,Whole Blood 150 mg/dL (70-110)
[2023-05-05] MEDS ORDERED: LIDOCAINE 2% INJ 20 MG/ML (2 ML VIAL) ONE (08:32)
[2023-05-05] MEDS ORDERED: PROPOFOL 10 MG/ML 20 ML VIAL IV ONE (08:32)
--- NOTE | 2023-05-05 08:48 | P.PCN ---
Date of Procedure: 05/05/23 Description of Procedure: PREOPERATIVE DIAGNOSIS: Gastroesophageal reflux disease. Morbid obesity. POSTOPERATIVE DIAGNOSIS: Gastroesophageal reflux disease. Morbid obesity. Gastritis. OPERATION: Esophagogastroduodenoscopy with biopsies along antrum and duodenum SURGEON: Chrystal Pelayo MD ANESTHESIA: MAC. INDICATIONS: The patient is a 53-year-old female who presents with reflux disease. Benefits and risks of the procedure were described. Informed consent was obtained. DESCRIPTION: The patient was brought into the endoscopy suite and laid in the left lateral decubitus position. An Olympus gastroscope was passed along the posterior oropharynx down to the distal esophagus where the squamocolumnar junction was encountered at 40 cm from the incisors. The stomach was entered and no bile reflux was found. Additional findings are listed below. Biopsies with cold forceps were obtained of the antrum. The first through third portion of the duodenum was examined. Retroflexion of the scope confirmed Hill grade 2 lower esophageal valve. The squamocolumnar junction demonstrated LA grade B erosive esophagitis. The stomach was desufflated. The patient tolerated the procedure well. FINDINGS: Squamocolumnar junction 40 cm from the incisors. Diaphragmatic hiatus at 40 cm. Hill grade 2 lower esophageal valve. LA grade B erosive esophagitis. Biopsies obtained of the duodenum. Chronic gastritis with biopsies obtained. RECOMMENDATIONS: Upper endoscopy as needed.
--- NOTE | 2023-05-05 09:48 | P.PCN ---
Date of Procedure: 05/05/23 Description of Procedure: PREOPERATIVE DIAGNOSIS: Colonoscopy screening POSTOPERATIVE DIAGNOSIS: Tubular adenoma ascending colon OPERATION: Colonoscopy to the ileocecal valve Colonoscopy with cold forceps biopsy SURGEON: Chrystal Pelayo MD. ANESTHESIA: MAC. INDICATIONS: The patient is an 53-year-old female who presents for colon screening Benefits and risks were described and informed consent was obtained. DESCRIPTION OF PROCEDURE: The patient had undergone Sutab prep. The patient had been brought into the operating room and laid in the left lateral decubitus position. After adequate intravenous sedation, the rectum was examined with 2% lidocaine jelly. The prostate was unremarkable. External hemorrhoids were encountered. The rectal tone was within normal limits. No lesions were palpated in the rectal vault. An Olympus colonoscope was advanced until the cecum, ileocecal valve and appe ndiceal orifice were clearly viewed. The prep was fair. Sigmoid diverticulosis was encountered. Colonic polyps were found and removed. No evidence of focal colitis was found. Retroflexion of the scope demonstrated grade 2 internal hemorrhoids without active bleeding or inflammation. The colon was desufflated. The patient had tolerated the procedure well. Withdrawal time was over 6 minutes. FINDINGS: Aronchick preparation quality scale 2 (1-5) Internal hemorrhoids, grade 2 External hemorrhoids, grade 2. No arteriovenous malformations. Sigmoid diverticulosis Removal of 1 polyps: - Cold forceps biopsy at ascending colon, 4 mm polyp. No focal colitis. RECOMMENDATIONS: Repeat colonoscopy 3 years, 2025 Plan - Discharge Summary Discharge Rx Participant: No New Discharge Prescriptions: Continue Cholecalciferol [Vitamin D3 (25 Mcg = 1000 Iu)] 1 tab PO DAILY Empagliflozin [Jardiance] 10 mg PO DAILY Atorvastatin [Lipitor] 40 mg PO HS Albuterol Inhaler [Ventolin Hfa Inhaler] 2 puff INHALATION RT-TID PRN PRN Reason: Shortness Of Breath Budesonide/Formoterol Fumarate [Symbicort 80-4.5 Mcg Inhaler] 2 puff INHALATION BID PRN PRN Reason: Shortness Of Breath Or Wheezing Dabigatran [Pradaxa] 150 mg PO BID #60 cap Azelastine HCl [Astepro] 1 spray NASAL BID Losartan [Cozaar] 50 mg PO HS Discharge Medication List Albuterol Inhaler [Ventolin Hfa Inhaler] 2 puff INHALATION RT-TID PRN 12/11/20 [History] Atorvastatin [Lipitor] 40 mg PO HS 12/11/20 [History] Budesonide/Formoterol Fumarate [Symbicort 80-4.5 Mcg Inhaler] 2 puff INHALATION BID PRN 12/11/20 [History] Dabigatran [Pradaxa] 150 mg PO BID #60 cap 12/15/20 [Rx] Azelastine HCl [Astepro] 1 spray NASAL BID 08/12/22 [History] Cholecalciferol [Vitamin D3 (25 Mcg = 1000 Iu)] 1 tab PO DAILY 08/12/22 [History] Losartan [Cozaar] 50 mg PO HS 08/12/22 [History] Empagliflozin [Jardiance] 10 mg PO DAILY 04/02/23 [History] [facility] [facility] [place] [place] [facility] [place] [facility] Patient Instructions/Handouts: Diverticulosis (GEN), Colorectal Polyps (GEN), Diverticulosis Diet (GEN) Activity/Diet/Wound Care/Special Instructions: Repeat colonoscopy in 3 years, 2025 Discharge Disposition: HOME SELF-CARE
[2023-05-05 10:02] VITALS: BP 129/89; PULSE 72
== END 2023-05-05 10:05 | disposition home or self-care (01) ==
LOC: ORWHC2ENDO 07:36
PROVIDERS: ATTEND Surgery Plastic and Reconstructive Surgery
DX: Z12.11 Encounter for screening for malignant neoplasm of colon (principal); K63.5 Polyp of colon; K29.50 Unspecified chronic gastritis without bleeding; K21.00 Gastro-esophageal reflux disease with esophagitis, without bleeding; E66.01 Morbid (severe) obesity due to excess calories; Z68.42 Body mass index [BMI] 45.0-49.9, adult; K44.9 Diaphragmatic hernia without obstruction or gangrene; K57.30 Diverticulosis of large intestine without perforation or abscess without bleeding; J45.909 Unspecified asthma, uncomplicated; E78.5 Hyperlipidemia, unspecified; M19.90 Unspecified osteoarthritis, unspecified site; Z87.891 Personal history of nicotine dependence; Z79.51 Long term (current) use of inhaled steroids; Z79.01 Long term (current) use of anticoagulants; Z79.899 Other long term (current) drug therapy; Z88.0 Allergy status to penicillin; Z88.1 Allergy status to other antibiotic agents
CPT/HCPCS: 88305; 45380; 43239; J2704; J2001

== ENCOUNTER → 2023-05-21 | Outpatient (CLI) | payer BC ==
[2023-05-21 13:42] VITALS: BP 109/69; PULSE 73; TEMP 98; BMI 33.2
--- NOTE | 2023-05-21 14:39 | P.BASOAP ---
Subjective Progress Note Date: 05/21/23 EGD and colon reviewed. Plan for sleeve gastrectomy. Hgb a1C reviewed. See had an ablation. EKG looks good. Wegiht gain. Mutiple medicaitons for blood sugars wihtout improvement. Objective - Vital Signs Vital signs: Vital Signs Temp 98.0 F 05/21/23 13:37 Pulse 73 05/21/23 13:37 Resp BP 109/69 05/21/23 13:37 Pulse Ox FiO2 Intake & Output 05/20/23 05/21/23 05/21/23 18:59 06:59 18:59 Weight 93.304 kg Assessment/Plan Plan: Date: 05/21/23 Initial Weight: 91.626 kg Initial BMI: 32.5 Current Weight: 93.304 kg Current BMI: 33.2 Type of Surgery: Total Volume in Band: Previous Volume: Volume Removed: Volume Added: Band Size:
== END ==
LOC: BARWHC3 13:31
PROVIDERS: ATTEND Surgery Plastic and Reconstructive Surgery
DX: Z53.9 Procedure and treatment not carried out, unspecified reason (principal)
CPT/HCPCS: 99211

== ENCOUNTER → 2023-06-02 | Outpatient (CLI) | payer BC ==
[2023-06-02 12:06] VITALS: BMI 33.9
== END ==
LOC: BARWHC3 08:34
PROVIDERS: ATTEND Surgery Plastic and Reconstructive Surgery
DX: E66.01 Morbid (severe) obesity due to excess calories (principal); Z68.33 Body mass index [BMI] 33.0-33.9, adult; Z71.3 Dietary counseling and surveillance; Z91.048 Other nonmedicinal substance allergy status; Z88.0 Allergy status to penicillin; Z88.8 Allergy status to other drugs, medicaments and biological substances; Z91.013 Allergy to seafood; Z87.891 Personal history of nicotine dependence
CPT/HCPCS: 97804

== ENCOUNTER → 2023-08-04 | Outpatient (CLI) | payer BC ==
[2023-08-05 02:56] LABS: ALT 103 U/L (8-44); AST 100 U/L (13-35); Albumin 4.5 g/dL (3.8-4.9); Albumin/Globulin Ratio 1.61 Ratio (1.60-3.17); Alkaline Phosphatase 111 U/L (41-126); Blood Urea Nitrogen 16.2 mg/dL (9.0-27.0); Calcium 10.1 mg/dL (8.7-10.3); Carbon Dioxide 25.6 mmol/L (21.6-31.8); Chloride 97 mmol/L (96-109); Globulin 2.8 g/dL (1.6-3.3); Glucose 148 mg/dL (70-110); Potassium 4.4 mmol/L (3.5-5.5); Sodium 134 mmol/L (135-145); Total Bilirubin 0.4 mg/dL (0.3-1.2); Total Protein 7.3 g/dL (6.2-8.2)
[2023-08-05 03:36] LABS: Basophils # (A) 0.09 X 10*3/uL (0.00-0.10); Basophils % (A) 0.9 %; Eosinophils # (A) 0.22 X 10*3/uL (0.04-0.35); Eosinophils % (A) 2.3 %; HCT 38.9 % (37.2-46.3); HGB 13.8 g/dL (12.0-15.0); Lymphocytes # (A) 2.49 X 10*3/uL (0.90-5.00); Lymphocytes % (A) 25.8 %; MCH 33.9 pg (27.0-32.0); MCHC 35.5 g/dL (32.0-37.0); MCV 95.6 FL (80.0-97.0); Mean Platelet Volume 10.8 FL (9.5-12.2); Monocytes # (A) 0.85 X 10*3/uL (0.20-1.00); Monocytes % (A) 8.8 %; NRBC Per 100 WBC 0 X 10*3/uL (0.00-0.01); Neutrophils # (A) 5.97 X 10*3/uL (1.80-7.70); Neutrophils % (A) 61.9 %; Platelet Count 283 X 10*3/uL (140-440); RBC 4.07 X 10*6/uL (4.10-5.20); RDW 13.3 % (11.5-14.5); WBC 9.65 X 10*3/uL (4.50-10.00)
== END | disposition home or self-care (01) ==
LOC: LABPAT 12:48
PROVIDERS: ATTEND Surgery Plastic and Reconstructive Surgery
DX: Z01.812 Encounter for preprocedural laboratory examination (principal)
CPT/HCPCS: 80053; 85025; 86850; 86900; 86901

== ENCOUNTER 2023-08-11 12:12 | Day surgery (SDC) | payer BC ==
--- NOTE | 2023-08-11 05:56 | P.GSHP ---
History of Present Illness H&P Date: 08/11/23 CHIEF COMPLAINT: Morbid obesity HISTORY OF PRESENT ILLNESS: Meera Grimes is a 54-year-old female who comes with morbid obesity. As result of morbid obesity, she has developed insulin- dependent diabetes type 2 with insulin resistance, hypertensive heart disease, obstructive sleep apnea, hyperlipidemia, osteoarthritis of the hips and knees. She has completed medical supervised weight loss. She completed medical including cardiac assessment. She has completed psychological risk assessment. All surgical options were reviewed. She elected for sleeve gastrectomy. At height of 5 feet 6 inches, her ideal body weight is 154 pounds. Highest weight 211 pounds. Her body mass index is 34.0. She is 57 pounds overweight. PAST MEDICAL HISTORY: 1. Morbid obesity due to excess calories 2. Body mass index of 34.0 3. Osteoarthritis of the knees. 4. Osteoarthritis of the lower back. 5. Hypertensive heart disease. 6. Gastroesophageal reflux disease 7. Hyperlipidemia 8. Obstructive sleep apnea 9. Diabetes type 2, insulin dependent with resistance 10. Chronic obstructive pulmonary disease due to asthma 11. Atrial fibrillation 12. Kidney stones 13. Vertigo 14. Generalized anxiety disorder PAST SURGICAL HISTORY: 1. Upper endoscopy 2. Cardiac ablation 3. Hysterectomy 4. Bilateral breast reduction 5. Bilateral knee arthroscopy 6. Left total knee replacement 7. Oophorectomy HOME MEDICATIONS: Home Medications Medication Instructions Recorded Confirmed Albuterol Inhaler [Ventolin Hfa 2 puff INHALATION RT-TID PRN 12/11/20 08/06/23 Inhaler] Atorvastatin [Lipitor] 40 mg PO HS 12/11/20 08/06/23 Budesonide/Formoterol Fumarate 2 puff INHALATION BID PRN 12/11/20 08/06/23 [Symbicort 80-4.5 Mcg Inhaler] Azelastine HCl [Astepro] 1 spray NASAL BID 08/12/22 08/06/23 Cholecalciferol [Vitamin D3 (25 1 tab PO DAILY 08/12/22 08/06/23 Mcg = 1000 Iu)] Losartan [Cozaar] 50 mg PO HS 08/12/22 08/06/23 Previous Rx's Medication Instructions Recorded Dabigatran [Pradaxa] 150 mg PO BID #60 cap 12/15/20 ALLERGIES: Allergies Allergy/AdvReac Type Severity Reaction Status Date / Time adhesive tape AdvReac Rash/Hives Verified 08/05/23 14:48 amoxicillin [From Augmentin] AdvReac severe Verified 08/05/23 14:48 Diarrhea clavulanic acid AdvReac severe Verified 08/05/23 14:48 [From Augmentin] Diarrhea Fish Containing Products AdvReac Unknown Verified 08/05/23 14:48 SOCIAL HISTORY: Past tobacco use. FAMILY HISTORY: No family history of ulcerative colitis disease or Crohn's disease. Family history of morbid obesity. No lupus in the family. No reports of stomach or esophageal cancer. REVIEW OF ORGAN SYSTEMS: CONSTITUTIONAL: At height of 5 feet 6 inches, her ideal body weight is 154 pounds. Highest weight 211 pounds. Her body mass index is 34.0. She is 57 pounds overweight. HEENT: Denies any active troubles with vision or hearing. Has vertigo. ENDOCRINE: Has diabetes. Denies hypothyroidism. CARDIOVASCULAR: Past reports of palpitations or heart attacks or chest pain. History of atrial fibrillation. RESPIRATORY: Has daytime somnolence. GASTROINTESTINAL: Denies any bright red blood per rectum. Has gastroesophageal reflux disease. MUSCULOSKELETAL: Has lower back pain and joint pain. Has osteoarthritis of the knees. NEURO: No headaches. No seizure disorders. PSYCH: Has depression. No suicidal ideation. RHEUMATOLOGIC: No lupus. No rheumatoid arthritis. HEMATOLOGIC: Denies any abnormal bleeding or bruising. No personal history of DVTs. On chronic anticoagulation. SKIN: Has rash. No skin cancer. PHYSICAL EXAM: VITAL SIGNS: Height 5 foot 6 inches, weight 211 pounds. BMI 34.0 GENERAL: Well-developed in no acute distress. HEENT: No scleral icterus. Extraocular movements grossly intact. Hears conversational speech. No nasal drainage. NECK: Supple without lymphadenopathy. CHEST: Nonlabored respirations with equal bilateral excursions. CARDIOVASCULAR: Distal 2+ pulses. ABDOMEN: Obese, soft, nontender, nondistended. MUSCULOSKELETAL: No clubbing, cyanosis. NEURO: No focal or lateralizing signs. Cranial nerves 2 through 12 grossly within normal limits. PSYCH: Appropriate affect. Alert and oriented to person, place and time. SKIN: Good skin turgor. Well perfused. ASSESSMENT: 1. Morbid obesity due to excess calories 2. Body mass index of 34.0. 3. Osteoarthritis of the knees. 4. Osteoarthritis of the lower back. 5. Hypertensive heart disease. 6. Gastroesophageal reflux disease 7. Hyperlipidemia 8. Obstructive sleep apnea 9. Diabetes type 2, insulin dependent with resistance 10. Chronic obstructive pulmonary disease due to asthma 11. Atrial fibrillation 12. Kidney stones 13. Vertigo 14. Generalized anxiety disorder 15. Chronic anticoagulation PLAN: 1. Bariatric options between a sleeve, band and a Amna-en-Y gastric bypass were reviewed in detail. The patient elected for a sleeve gastrectomy. Robotic assisted approach described. 2. The [place] [facility] Data was also reviewed with benefits and risks as described. 3. An 8 page second-generation bariatric consent form was reviewed in detail including potential of bleeding, infection, leaks, adequate weight loss, nutritional deficiencies which the patient demonstrated understanding of the risks. 4. A 2 week high-protein low caloric 800 kcal diet described to address hepatomegaly. 5. Preoperative labs including complete metabolic panel and CBC with type and screen recommended. 6. DVT prophylaxis per [place] [facility]. 7. Antibiotic prophylaxis. 8. Inpatient hospitalization anticipated for more than 2 nights. 9. All questions and concerns were addressed with the patient. 10. She is at elevated risk for perioperative complications secondary to pre-existing diabetes type 2 insulin-dependent and chronic anticoagulation for atrial fibrillation. She is at risk for bleeding. 11. Overall, patient has expressed understanding of bariatric care including po stoperative diet and commitment of lifestyle. Patient should benefit from surgical intervention for correction of her morbid obesity. Past Medical History Past Medical History: Atrial Flutter, Asthma, Diabetes Mellitus, Hyperlipidemia, Osteoarthritis (OA) Additional Past Medical History / Comment(s): kidney stones, environmental all ergies,vertigo when looking up or turning head to right, states takes losartan for hypotension, ?insulin resistant diabetes - no medications seem to work, pt. has been on low carb diet for 2 weeks, has lost 13 lbs and CBG still 250 History of Any Multi-Drug Resistant Organisms: None Reported Past Surgical History: Breast Surgery, Cardiac Ablation, Hysterectomy, Joint Replacement, Orthopedic Surgery Additional Past Surgical History / Comment(s): bilat. breast reduction, 02/12/21 cardiac ablation, oophorectomy, bilat. knee arthroscopies, Lt. TKR Past Anesthesia/Blood Transfusion Reactions: No Reported Reaction Additional Past Anesthesia/Blood Transfusion Reaction / Comment(s): Anxiety w/ anesthesia - fear of not waking up Smoking Status: Former smoker - Past Family History Father Family Medical History: Cancer Additional Family Medical History / Comment(s): Cancer Lt. eye & lung. age 39 Mother Family Medical History: AICD/Pacemaker Additional Family Medical History / Comment(s): Mother's sister had CVA Brother(s) Family Medical History: Hyperlipidemia, Hypertension Medications and Allergies Home Medications Medication Instructions Recorded Confirmed Type Albuterol Inhaler [Ventolin Hfa 2 puff INHALATION RT-TID PRN 12/11/20 08/06/23 History Inhaler] Atorvastatin [Lipitor] 40 mg PO HS 12/11/20 08/06/23 History Budesonide/Formoterol Fumarate 2 puff INHALATION BID PRN 12/11/20 08/06/23 History [Symbicort 80-4.5 Mcg Inhaler] Dabigatran [Pradaxa] 150 mg PO BID #60 cap 12/15/20 08/06/23 Rx Azelastine HCl [Astepro] 1 spray NASAL BID 08/12/22 08/06/23 History Cholecalciferol [Vitamin D3 (25 1 tab PO DAILY 08/12/22 08/06/23 History Mcg = 1000 Iu)] Losartan [Cozaar] 50 mg PO HS 08/12/22 08/06/23 History Allergies Allergy/AdvReac Type Severity Reaction Status Date / Time adhesive tape AdvReac Rash/Hives Verified 08/05/23 14:48 amoxicillin [From Augmentin] AdvReac severe Verified 08/05/23 14:48 Diarrhea clavulanic acid AdvReac severe Verified 08/05/23 14:48 [From Augmentin] Diarrhea Fish Containing Products AdvReac Unknown Verified 08/05/23 14:48
[~2023-08-11 12:12] MED LIST changes: +ALVIMOPAN 12 MG CAPSULE PO PRN; +CHLORHEXIDINE GLUCONATE 15 ML CUP MUCOUS MEM PRN; +ENOXAPARIN 40 MG/0.4 ML SYRINGE SQ PRN; +HYDROmorphone 0.5 MG/0.5 ML SYRINGE IVP PRN; -MELOXICAM 7.5 MG TAB PO PRN; +MIDAZOLAM 2 MG/2 ML VIAL IV PRN; +ONDANSETRON 4 MG/2 ML VIAL IVP PRN; +PANTOPRAZOLE 40 MG/10 ML VIAL IVP PRN; +SCOPOLAMINE 1 MG/72 HR PATCH TRANSDERM STA; -TRANEXAMIC ACID IN NACL,ISO-OS 1,000 MG in SALINE 1 100ML.BAG IVPB PRN
[2023-08-11] MEDS: LACTATED RINGERS 1,000 ML IV SCH (12:55)
[2023-08-11 13:29] LABS: Glucose,Whole Blood 144 mg/dL (70-110)
[2023-08-11 13:44] LABS: Basophils # (A) 0.1 k/uL (0-0.2); Basophils % (A) 1 %; Eosinophils # (A) 0.1 k/uL (0-0.7); Eosinophils % (A) 1 %; HCT 42.4 % (34.0-46.0); HGB 14.6 gm/dL (11.4-16.0); Lymphocytes # (A) 1.8 k/uL (1.0-4.8); Lymphocytes % (A) 22 %; MCH 30.8 pg (25.0-35.0); MCHC 34.4 g/dL (31.0-37.0); MCV 89.4 fL (80.0-100.0); Mean Platelet Volume 8.2; Monocytes # (A) 0.5 k/uL (0-1.0); Monocytes % (A) 6 %; Neutrophils # (A) 5.8 k/uL (1.3-7.7); Neutrophils % (A) 68 %; Platelet Count 300 k/uL (150-450); RBC 4.75 m/uL (3.80-5.40); WBC 8.5 k/uL (3.8-10.6)
[2023-08-11 13:55] LABS: ALT 110 U/L (4-34); AST 114 U/L (14-36); African American GFR (CKD) >90 (>60 ml/min/1.73 sqM); Albumin 4.7 g/dL (3.5-5.0); Alkaline Phosphatase 121 U/L (38-126); Anion Gap 15 mmol/L; Blood Urea Nitrogen 12 mg/dL (7-17); Calcium 10.1 mg/dL (8.4-10.2); Carbon Dioxide 20 mmol/L (22-30); Chloride 106 mmol/L (98-107); Glucose 153 mg/dL (74-99); Non-African American GFR(CKD) >90 (>60 ml/min/1.73 sqM); Potassium 4.2 mmol/L (3.5-5.1); Sodium 141 mmol/L (137-145); Total Bilirubin 0.7 mg/dL (0.2-1.3); Total Protein 8.1 g/dL (6.3-8.2)
[2023-08-11] MEDS ORDERED: LIDOCAINE 0.5%-EPI 1:200,000 50 ML VIAL SQ ONE (14:33)
[2023-08-11] MEDS ORDERED: IV FLUID CONTINUATION 1,000 ML IV ONE ×2 (14:34)
[2023-08-11] MEDS ORDERED: ONDANSETRON 4 MG/2 ML VIAL IVP ONE (16:40)
[2023-08-11] MEDS ORDERED: NALOXONE 0.4 MG/ML 1 ML VIAL IV PRN (17:02)
[2023-08-11] MEDS ORDERED: ALBUTEROL HFA INHALER INHALATION PRN (17:05)
[2023-08-11] MEDS ORDERED: SYMBICORT 80-4.5 MCG INHALER INHALATION PRN (17:05)
[2023-08-11] MEDS ORDERED: droPERidol 5 MG/2 ML VIAL IVP ONE (17:07)
[2023-08-11] MEDS: SIMETHICONE 40 MG/0.6 ML DROPS 2,000 MG/30 ML BOTTLE PO SCH ×2 (17:41→20:32)
[2023-08-11] MEDS: 0.9% NACL WITH KCL 20 MEQ/L 1,000 ML IV SCH (17:41)
[2023-08-11] MEDS: ACETAMINOPHEN IV (For NPO) 1,000 MG in EMPTY BAG 1 BAG IVPB SCH (17:41)
[2023-08-11] MEDS: ONDANSETRON 4 MG/2 ML VIAL IVP SCH (17:42)
[2023-08-11] MEDS: ALBUTEROL NEBULIZED 2.5 MG/3 ML INHALATION SCH (20:26)
[2023-08-11] MEDS: PANTOPRAZOLE 40 MG/10 ML VIAL IVP SCH (20:32)
[2023-08-11] MEDS: AZELASTINE 137MCG/SPRAY NASAL SCH (20:32)
[2023-08-11] MEDS: HYDROmorphone 1 MG/ML 1 ML SYRINGE IVP PRN (20:33)
[2023-08-11] MEDS ORDERED: LOSARTAN 50 MG TAB PO SCH (21:00)
--- NOTE | 2023-08-11 21:28 | P.OP ---
Date of Procedure: 08/11/23 Description of Procedure: SURGEON: ZAHEER NI MD PREOPERATIVE DIAGNOSES: 1. Morbid obesity due to excess calories 2. Body mass index of 34.0. 3. Osteoarthritis of the knees. 4. Osteoarthritis of the lower back. 5. Hypertensive heart disease. 6. Gastroesophageal reflux disease 7. Hyperlipidemia 8. Obstructive sleep apnea 9. Diabetes type 2, insulin dependent with resistance 10. Chronic obstructive pulmonary disease due to asthma 11. Atrial fibrillation 12. Kidney stones 13. Vertigo 14. Generalized anxiety disorder 15. Chronic anticoagulation POSTOPERATIVE DIAGNOSES: 1. Morbid obesity due to excess calories 2. Body mass index of 34.0. 3. Osteoarthritis of the knees. 4. Osteoarthritis of the lower back. 5. Hypertensive heart disease. 6. Gastroesophageal reflux disease 7. Hyperlipidemia 8. Obstructive sleep apnea 9. Diabetes type 2, insulin dependent with resistance 10. Chronic obstructive pulmonary disease due to asthma 11. Atrial fibrillation 12. Kidney stones 13. Vertigo 14. Generalized anxiety disorder 15. Chronic anticoagulation 16. Hepatomegaly fatty liver disease OPERATION: 1. Robotic assisted daVinci Xi laparoscopic sleeve gastrectomy with 40-Sri Lankan bougie, multiport. 2. Intraoperative esophagogastroduodenoscopy. ANESTHESIA: Gen. local anesthetic ESTIMATED BLOOD LOSS: 20 mL SPECIMENS REMOVED: Sleeve gastrectomy COMPLICATIONS: None. FINDINGS: 1. Negative intraoperative esophagogastrojejunoscopy leak test. 2. Hepatomegaly with fatty liver disease 3. Total of 7 staplers used including 2 - 60 mm green robot najma and 5 - 60 mm blue robot loads used to create the gastric sleeve. 4. Sleeve gastrectomy, 28 x 6 cm 5. Early features of chronic cholecystitis INDICATIONS: Meera Grimes is a 54-year-old female who comes with morbid obesity. As result of morbid obesity, she has developed insulin-dependent diabetes type 2 with insulin resistance, hypertensive heart disease, obstructive sleep apnea, hyperlipidemia, osteoarthritis of the hips and knees. She has completed medical supervised weight loss. She completed medical including cardiac assessment. She has completed psychological risk assessment. All surgical options were reviewed. She elected for sleeve gastrectomy. At height of 5 feet 6 inches, her ideal body weight is 154 pounds. Highest weight 211 pounds. Her body mass index is 34.0. She is 57 pounds overweight. All surgical options for morbid obesity had been described using the [place] bariatric surgery collaborative comorbidity resolution including complication risk score. A second-generation bariatric consent form was described in detail including the possibility of protein malnutrition, leaks, gastric stricture, venous thrombosis, gastroesophageal reflux disease, need for further surgery for which she demonstrated understanding. Benefits and risks of the procedure were described at length. Informed consent was obtained. DESCRIPTION: The patient was brought into the operating room theater. Preoperatively she had received Lovenox subcutaneously for DVT prophylaxis. Additionally she had Peridex oral solution as an oral decontaminant. After general induction, the abdomen was prepped and draped in standard sterile fashion. An Ioban draping was placed along the abdomen. A robotic da Shar Xi system was prepped and primed. At 15 cm from the xiphoid, proposed port sites were marked with indelible marker along the anterior axillary line bilaterally, mid axillary line bilaterally with each ports were marked 10 to 15 cm from each other. The robotic stapler port was marked for the right midclavicular line. A 5 mm 0 degrees laparoscopic trocar entry was performed along the left upper quadrant. The abdomen was insufflated to 15 mmHg pressure was tolerated well. Diagnostic laparoscopy demonstrated no injury to bowel, viscera, or mesentery. No evidence of large hiatus hernia was identified. The liver edge was sharp consistent with 2 week low-carb high-protein diet. A 8 mm port was placed along the left upper abdominal wall after exchanging the 5 mm port. A separate 8 mm port was placed along the left lateral abdominal wall. Please note that the ports were placed at least 20 cm away from the target anatomy. Care was taken to check each robotic arms were safely away from collision with the bed or the patient. At the epigastrium, a medium sized Jazmyne liver retractor was placed under direct visualization with the Iron Senior Oracle Adf Developer placed under the right shoulder of the patient. Next, 12-mm robot stapler port was placed along the right upper quadrant. The camera 8-mm port was maintained along the epigastrium. The patient was repositioned in reverse Trendelenburg position at 21-degrees after lowering the bed. The robot was docked along the left side of the patient. Using a grasper for arm 4, a vessel sealer for arm 3, including grasper for arm 1, the robotic system was docked and primed as described. Instruments were interchanged by the assistant program manager for stapler loads. The camera was placed at 30- degrees down. I had sat at the console. The pylorus was identified and 6 cm proximally along the greater curvature of the stomach, the short gastrics were mobilized upwards to the angle of His using a vessel sealer. Hemostasis was excellent during this portion of the procedure. Next, the upper pole of the stomach was adherent to the left stu, which was gently dissected free using atraumatic grasper. I went to the head of the bed and placed 40-Sri Lankan blunt bougie into the stomach. The bougie was readjusted by the nurse degreasing wheel operator. Robotic stapler green load 60 mm 2 followed by blue 60 mm x 5 loads were used to create the sleeve. Initial firing was across the antrum of the stomach towards the angle of His. The staple line was linear without corkscrewing. The space from the angularis incisura of the sleeve was approximately 4 cm. bleeding along the antrum and distal stomach was controlled with cautery. I then went to the head of the bed to perform the intraoperative esophagogastroduodenoscopy leak test. The bougie was withdrawn. The upper pole of the stomach was bathed using normal saline solution. The scope was withdrawn with careful inspection along the staple line for which no leaks were found along the entire length. Additionally,the sleeve was completely hemostatic without any encroachment along the angularis incisura. Its topology was a soft "J". No stricture was encountered upon placement of the scope. The GI tract was desufflated. The patient tolerated this portion of the procedure well. The scope was completely withdrawn. The robot was undocked. I then rescrubbed into case, whereby the irrigation fluid was aspirated from the abdominal cavity. Tisseel fibrin sealant was placed along the entire staple length. Once dried the Jazmyne liver retractor was removed. Attention was now brought to removal of the specimen. The distal end of the sleeve gastrectomy specimen was brought out through the 12 mm port at the left upper quadrant. The specimen was gently removed en total. No contamination had occurred during this process. All instruments and pneumoperitoneum including irrigation fluid was removed from the abdominal cavity. The 12 mm port site was closed using 0-Vicryl and Connor Wills and irrigated with diluted hydrogen peroxide. The final incisions were closed using subcuticular interrupted suture of 4-0 Monocryl. Exofin was applied to the skin once the skin had been cleansed. OptiFoam dressing was placed along the stomach extraction site. The sleeve specimen was measured and checked also for leaks which none were found. At the end of the procedure, needle, sponge, and instrument count was verified correct by the ophthalmic surgical assistant. The patient was taken to the postanesthesia care unit in stable condition. She had tolerated the procedure well. Intraoperative films and findings were reviewed with the patient's family.
[2023-08-11] MEDS ORDERED: DEXTROSE 50% SYRINGE 50 ML IVP PRN ×2 (21:32)
[2023-08-12] MEDS: 0.9% NACL WITH KCL 20 MEQ/L 1,000 ML IV SCH ×2 (00:05→06:00)
[2023-08-12] MEDS: ACETAMINOPHEN IV (For NPO) 1,000 MG in EMPTY BAG 1 BAG IVPB SCH ×3 (00:06→12:33)
[2023-08-12] MEDS: ONDANSETRON 4 MG/2 ML VIAL IVP SCH ×3 (00:07→12:32)
[2023-08-12] MEDS: HYDROmorphone 1 MG/ML 1 ML SYRINGE IVP PRN ×2 (00:07→06:00)
[2023-08-12 06:02] LABS: Glucose,Whole Blood 166 mg/dL (70-110)
[2023-08-12] MEDS: INSULIN ASPART (NovoLOG) 100 UNIT/ML VIAL SQ SCH ×2 (06:59→12:09)
[2023-08-12] MEDS ORDERED: 0.9% NACL WITH KCL 20 MEQ/L 1,000 ML IV SCH (08:00)
[2023-08-12] MEDS: PANTOPRAZOLE 40 MG/10 ML VIAL IVP SCH (08:01)
[2023-08-12] MEDS: SIMETHICONE 40 MG/0.6 ML DROPS 2,000 MG/30 ML BOTTLE PO SCH ×2 (08:01→12:34)
[2023-08-12] MEDS: AZELASTINE 137MCG/SPRAY NASAL SCH (08:02)
[2023-08-12] MEDS: ALBUTEROL NEBULIZED 2.5 MG/3 ML INHALATION SCH ×3 (08:48→14:54)
[2023-08-12] MEDS ORDERED: ENOXAPARIN 40 MG/0.4 ML SYRINGE SQ SCH (09:00)
[2023-08-12] MEDS: LACTATED RINGERS 1,000 ML IV SCH (10:45)
[2023-08-12 11:07] LABS: Glucose,Whole Blood 145 mg/dL (70-110)
[2023-08-12 12:21] VITALS: BMI 31.0
--- NOTE | 2023-08-12 12:45 | FL ---
EXAMINATION TYPE: FL UGI DATE OF EXAM: 08/12/2023 12:13 PM CLINICAL INDICATION:Female, 53 years old with history of Post Op Bariatric Surgery; COMPARISON: None TECHNIQUE: Limited single contrast UGI study is performed with Isovue-370. A total of 19 seconds of f luoroscopic time was utilized during procedure and 56 images obtained. DAP: 2742.4 mGym2 FINDINGS: The stomach demonstrates a postsurgical morphology. No extravasation of contrast identifie d. No evidence of mass or ulcer disease. The duodenal bulb and sweep are unremarkable. IMPRESSION: Postsurgical changes without evidence of contrast extravasation.
[2023-08-12 13:34] LABS: Basophils # (A) 0.04 X 10*3/uL (0.00-0.10); Basophils % (A) 0.4 %; Eosinophils # (A) 0.02 X 10*3/uL (0.04-0.35); Eosinophils % (A) 0.2 %; HCT 34.4 % (37.2-46.3); HGB 12.2 g/dL (12.0-15.0); Lymphocytes # (A) 1.92 X 10*3/uL (0.90-5.00); Lymphocytes % (A) 17.3 %; MCH 33.6 pg (27.0-32.0); MCHC 35.5 g/dL (32.0-37.0); MCV 94.8 FL (80.0-97.0); Mean Platelet Volume 11.1 FL (9.5-12.2); NRBC Per 100 WBC 0 X 10*3/uL (0.00-0.01); Neutrophils # (A) 8.07 X 10*3/uL (1.80-7.70); Neutrophils % (A) 72.6 %; Platelet Count 252 X 10*3/uL (140-440); RBC 3.63 X 10*6/uL (4.10-5.20); RDW 13.2 % (11.5-14.5)
[2023-08-12 13:46] VITALS: BP 137/72; PULSE 74; RESP 18; TEMP 97.6
[2023-08-12 13:55] LABS: Blood Urea Nitrogen 6.3 mg/dL (9.0-27.0); Calcium 8.9 mg/dL (8.7-10.3); Carbon Dioxide 20.8 mmol/L (21.6-31.8); Chloride 106 mmol/L (96-109); Magnesium 1.8 mg/dL (1.5-2.4); Sodium 139 mmol/L (135-145)
--- NOTE | 2023-08-12 14:37 | P.DS ---
Providers Expected date of discharge: 08/12/23 Attending physician: Chrystal Pelayo Primary care physician: María Morrissye [facility] Course: Discharge diagnosis 1. Morbid obesity due to excess calories 2. Body mass index of 34.0. 3. Osteoarthritis of the knees. 4. Osteoarthritis of the lower back. 5. Hypertensive heart disease. 6. Gastroesophageal reflux disease 7. Hyperlipidemia 8. Obstructive sleep apnea 9. Diabetes type 2, insulin dependent with resistance 10. Chronic obstructive pulmonary disease due to asthma 11. Atrial fibrillation 12. Kidney stones 13. Vertigo 14. Generalized anxiety disorder 15. Chronic anticoagulation 16. Hepatomegaly fatty liver disease Hospital course Meera Grimes is a 54-year-old female who comes with morbid obesity. As result of morbid obesity, she has developed insulin-dependent diabetes type 2 with insulin resistance, hypertensive heart disease, obstructive sleep apnea, hyperlipidemia, osteoarthritis of the hips and knees. She is status post Robotic assisted daVinci Xi laparoscopic sleeve gastrectomy. Upper GI shows no evidence of leak or obstruction. Patient is tolerating liquid diet. Her pain is controlled. She has been up and ambulating. Denies any difficult urinating. She is stable for discharge. Physician Driller Brake Lining note has been reviewed by physician. Signing provider agrees with the documented findings, assessment, and plan of care. Patient Condition at Discharge: Stable Plan - Discharge Summary Discharge Rx Participant: No New Discharge Prescriptions: New bisacodyL [Dulcolax] 5 mg PO DAILY PRN #10 tab PRN Reason: Constipation Acetaminophen Tab [Tylenol] 1,000 mg PO Q6HR PRN #30 tablet PRN Reason: Pain Simethicone 40 mg/0.6 ml Drops [Mylicon Drops] 40 mg PO PCHS PRN #30 ml PRN Reason: Gas Omeprazole [PriLOSEC] 40 mg PO DAILY #30 cap Ondansetron Odt [Zofran Odt] 4 mg PO Q8HR PRN #9 tab PRN Reason: Nausea Continue Albuterol Inhaler [Ventolin Hfa Inhaler] 2 puff INHALATION RT-TID PRN PRN Reason: Shortness Of Breath Budesonide/Formoterol Fumarate [Symbicort 80-4.5 Mcg Inhaler] 2 puff INHALATION BID PRN PRN Reason: Shortness Of Breath Or Wheezing Azelastine HCl [Astepro] 1 spray NASAL BID Losartan [Cozaar] 50 mg PO HS Discontinued Cholecalciferol [Vitamin D3 (25 Mcg = 1000 Iu)] 1 tab PO DAILY Atorvastatin [Lipitor] 40 mg PO HS Dabigatran [Pradaxa] 150 mg PO BID #60 cap Discharge Medication List Albuterol Inhaler [Ventolin Hfa Inhaler] 2 puff INHALATION RT-TID PRN 12/11/20 [History] Budesonide/Formoterol Fumarate [Symbicort 80-4.5 Mcg Inhaler] 2 puff INHALATION BID PRN 12/11/20 [History] Azelastine HCl [Astepro] 1 spray NASAL BID 08/12/22 [History] Losartan [Cozaar] 50 mg PO HS 08/12/22 [History] Acetaminophen Tab [Tylenol] 1,000 mg PO Q6HR PRN #30 tablet 08/12/23 [Rx] Omeprazole [PriLOSEC] 40 mg PO DAILY #30 cap 08/12/23 [Rx] Ondansetron Odt [Zofran Odt] 4 mg PO Q8HR PRN #9 tab 08/12/23 [Rx] Simethicone 40 mg/0.6 ml Drops [Mylicon Drops] 40 mg PO PCHS PRN #30 ml 08/12/23 [Rx] bisacodyL [Dulcolax] 5 mg PO DAILY PRN #10 tab 08/12/23 [Rx] Follow up Appointment(s)/Referral(s): [place], [place] [NON-STAFF] - 08/20/23 1:00 pm Activity/Diet/Wound Care/Special Instructions: Liquid diet only for 2 weeks No lifting over 4 pounds in 4 weeks May Shower. No soaking in bath tubs for 2 weeks Please notify your surgeon if you develop nausea and vomiting including new onset of abdominal pain. Continue to use incentive spirometry to prevent pneumonias. Please continue to ambulate at home to prevent blood clots in legs. Follow-up at the bariatric center. May shower. Dressings to be discontinued by surgeon in the office. Drink 64 oz of fluid daily. Start protein shakes on . Notify bariatric center for temp over 101.0, increased pain, drainage from incisions. No straws or carbonated beverages. Liquid diet only. Sugar content should be less than 6 g to avoid dumping syndrome. Take MOM for constipation. CRUSH, OPEN, OR CUT TABLETS LARGER THAN A SIZE OF A TIC TAC Do not take Pradaxa, lipitor or vitamins due to increase bleeding risk after surgery until seen by surgeon Discharge Disposition: HOME SELF-CARE
== END 2023-08-12 15:22 | disposition home or self-care (01) ==
LOC: OR 12:12 → 4SSUR 15:53 → OR 08-12 15:22
PROVIDERS: ATTEND Surgery Plastic and Reconstructive Surgery
DX: E66.01 Morbid (severe) obesity due to excess calories (principal); E11.9 Type 2 diabetes mellitus without complications; I48.91 Unspecified atrial fibrillation; E88.819 Insulin resistance, unspecified; Z79.4 Long term (current) use of insulin; F41.1 Generalized anxiety disorder; E78.5 Hyperlipidemia, unspecified; G47.33 Obstructive sleep apnea (adult) (pediatric); I11.9 Hypertensive heart disease without heart failure; K21.9 Gastro-esophageal reflux disease without esophagitis; J44.89 Other specified chronic obstructive pulmonary disease; M16.0 Bilateral primary osteoarthritis of hip; K76.0 Fatty (change of) liver, not elsewhere classified; N20.0 Calculus of kidney; R83.4 Abnormal immunological findings in cerebrospinal fluid; Z68.34 Body mass index [BMI] 34.0-34.9, adult; M17.0 Bilateral primary osteoarthritis of knee; Z79.01 Long term (current) use of anticoagulants; R42 Dizziness and giddiness; Z80.1 Family history of malignant neoplasm of trachea, bronchus and lung; Z79.51 Long term (current) use of inhaled steroids; Z82.3 Family history of stroke; Z88.0 Allergy status to penicillin; Z83.49 Family history of other endocrine, nutritional and metabolic diseases; Z87.442 Personal history of urinary calculi; Z88.1 Allergy status to other antibiotic agents; Z87.891 Personal history of nicotine dependence; Z90.722 Acquired absence of ovaries, bilateral; Z82.49 Family history of ischemic heart disease and other diseases of the circulatory system
CPT/HCPCS: 43255; 43775; S2900; 74240; 80051; 80053; 82310; 82565; 83036; 83735; 84100; 84520; 85025; 94640; 94760

== ENCOUNTER → 2023-09-10 | Outpatient (CLI) | payer BC ==
--- NOTE | 2023-09-10 14:06 | P.BASOAP ---
Subjective Progress Note Date: 09/10/23 DATE OF SERVICE: 09/10/23 CHIEF COMPLAINT: Status post sleeve gastrectomy HISTORY OF PRESENT ILLNESS: Meera Grimes is a 53-year-old female status post sleeve gastrectomy, 08/11/2023. She is 1 month out. Denies gastroesophageal reflux disease. She has hiccups. He denies infection. No reports of hernia. Blood sugar glucose is 144 - 190. Her blood sugar is not over 200. Her protein intake is from [employer] and 12 oz chicken daily. She has lactose intolerance. At height of 5 feet 6 inches, her ideal body weight is 154 pounds. Highest weight 211 pounds. Today she comes in 185 pounds from 195 pounds, 1 month ago. She lost 10 pounds in 1 month. Her body mass index was 34.1 down to 29.9. She is 31 pounds overweight. Lifetime weight loss 26 pounds. Lifetime percent excess weight loss 46% PHYSICAL EXAM: VITAL SIGNS: Height 5 foot 6 inches, weight 185 pounds. BMI 29.9 Vital Signs Temp 97.7 F 09/10/23 13:36 Pulse 67 09/10/23 13:36 Resp BP 116/68 09/10/23 13:36 Pulse Ox FiO2 GENERAL: Well-developed in no acute distress. HEENT: No scleral icterus. Extraocular movements grossly intact. Hears conversational speech. No nasal drainage. NECK: Supple without lymphadenopathy. CHEST: Nonlabored respirations with equal bilateral excursions. CARDIOVASCULAR: Distal 2+ pulses. ABDOMEN: Incisions clean dry and intact. No infection. No hernia. MUSCULOSKELETAL: No clubbing, cyanosis. NEURO: No focal or lateralizing signs. Cranial nerves 2 through 12 grossly within normal limits. PSYCH: Appropriate affect. Alert and oriented to person, place and time. SKIN: Good skin turgor. Well perfused. ASSESSMENT: 1. Morbid obesity due to excess calories 2. Body mass index of 34.0 to 29.9 3. Osteoarthritis of the knees. 4. Osteoarthritis of the lower back. 5. Hypertensive heart disease. 6. Gastroesophageal reflux disease 7. Hyperlipidemia 8. Obstructive sleep apnea 9. Diabetes type 2, insulin dependent with resistance 10. Chronic obstructive pulmonary disease due to asthma 11. Atrial fibrillation 12. Kidney stones 13. Vertigo 14. Generalized anxiety disorder 15. Chronic anticoagulation 16. Lactose intolerance PLAN: 1. She had lactose intolerance. Change of protein shakes to fairlife or lactose-free products 2. Recommend fluid intake 64 ounces daily 3. Recommend bariatric labs 1 month postop Objective - Vital Signs Vital signs: Vital Signs Temp 97.7 F 09/10/23 13:36 Pulse 67 09/10/23 13:36 Resp BP 116/68 09/10/23 13:36 Pulse Ox FiO2 Intake & Output 09/09/23 09/10/23 09/10/23 18:59 06:59 18:59 Weight 83.915 kg Assessment/Plan Plan: Date: 09/10/23 Initial Weight: 91.626 kg Initial BMI: 32.5 Current Weight: 83.915 kg Current BMI: 29.8 Type of Surgery: Total Volume in Band: Previous Volume: Volume Removed: Volume Added: Band Size:
[2023-09-10 14:08] VITALS: BP 116/68; PULSE 67; TEMP 97.7; BMI 29.8
== END ==
LOC: BARWHC3 13:25
PROVIDERS: ATTEND Surgery Plastic and Reconstructive Surgery
DX: K21.9 Gastro-esophageal reflux disease without esophagitis (principal); E66.01 Morbid (severe) obesity due to excess calories; M17.0 Bilateral primary osteoarthritis of knee; M47.816 Spondylosis without myelopathy or radiculopathy, lumbar region; I11.9 Hypertensive heart disease without heart failure; E78.5 Hyperlipidemia, unspecified; G47.33 Obstructive sleep apnea (adult) (pediatric); E11.9 Type 2 diabetes mellitus without complications; J44.89 Other specified chronic obstructive pulmonary disease; I48.91 Unspecified atrial fibrillation; R42 Dizziness and giddiness; F41.1 Generalized anxiety disorder; D68.9 Coagulation defect, unspecified; E73.9 Lactose intolerance, unspecified; N20.0 Calculus of kidney; Z71.3 Dietary counseling and surveillance; Z68.29 Body mass index [BMI] 29.0-29.9, adult; Z91.048 Other nonmedicinal substance allergy status; Z88.0 Allergy status to penicillin; Z88.8 Allergy status to other drugs, medicaments and biological substances; Z91.013 Allergy to seafood; Z79.899 Other long term (current) drug therapy; Z87.891 Personal history of nicotine dependence
CPT/HCPCS: 97803; 99211

== ENCOUNTER → 2023-09-10 | Outpatient (CLI) | payer BC ==
[2023-09-10 15:59] LABS: Prothrombin Time 10.5 sec (10.0-12.5)
[2023-09-10 18:31] LABS: HCT 35.9 % (37.2-46.3); HGB 12.7 g/dL (12.0-15.0); MCH 34.2 pg (27.0-32.0); MCHC 35.4 g/dL (32.0-37.0); MCV 96.8 FL (80.0-97.0); Mean Platelet Volume 11.8 FL (9.5-12.2); NRBC Per 100 WBC 0 X 10*3/uL (0.00-0.01); Platelet Count 180 X 10*3/uL (140-440); RBC 3.71 X 10*6/uL (4.10-5.20); RDW 14.6 % (11.5-14.5); WBC 4.96 X 10*3/uL (4.50-10.00)
[2023-09-10 20:17] LABS: Prealbumin 21.8 mg/dL (18.0-42.0)
[2023-09-11 12:31] LABS: Zinc, Serum 80 ug/dL (60-130)
[2023-09-11 19:12] LABS: % Iron Saturation 21.69 (12.00-45.00); BUN/Creat Ratio 16.71 Ratio (12.00-20.00); Blood Urea Nitrogen 11.7 mg/dL (9.0-27.0); Chloride 105 mmol/L (96-109); Chol/HDL Ratio 3.46 Ratio; Glucose 122 mg/dL (70-110); Iron 82 UG/DL (50-170); LDL Cholesterol,Calculated 53.7 mg/dL (0.0-131.0); Magnesium 1.7 mg/dL (1.5-2.4); Phosphorus 3.3 mg/dL (2.4-5.1); Sodium 141 mmol/L (135-145); Total Iron Binding Capacity 378 UG/DL (228-460)
[2023-09-11 19:13] LABS: ALT 46 U/L (8-44); AST 27 U/L (13-35); Albumin 4.4 g/dL (3.8-4.9); Albumin/Globulin Ratio 1.69 Ratio (1.60-3.17); Alkaline Phosphatase 107 U/L (41-126); Calcium 9.6 mg/dL (8.7-10.3); Carbon Dioxide 25.8 mmol/L (21.6-31.8); Globulin 2.6 g/dL (1.6-3.3); Total Bilirubin 0.4 mg/dL (0.3-1.2)
[2023-09-12 07:42] LABS: Vit B1(Thiamine) 45 ug/L (38-122)
== END | disposition home or self-care (01) ==
LOC: LABWHC1 14:11
PROVIDERS: ATTEND Surgery Plastic and Reconstructive Surgery
DX: E66.01 Morbid (severe) obesity due to excess calories (principal); E89.1 Postprocedural hypoinsulinemia; D50.8 Other iron deficiency anemias; K91.2 Postsurgical malabsorption, not elsewhere classified; E44.0 Moderate protein-calorie malnutrition; E44.1 Mild protein-calorie malnutrition; E45 Retarded development following protein-calorie malnutrition; E46 Unspecified protein-calorie malnutrition; E55.9 Vitamin D deficiency, unspecified; K74.1 Hepatic sclerosis; N19 Unspecified kidney failure; T56.894A Toxic effect of other metals, undetermined, initial encounter; K50.90 Crohn's disease, unspecified, without complications
CPT/HCPCS: 36415; 80053; 80061; 82306; 82525; 82607; 82728; 82746; 83036; 83540; 83550; 83735; 83970; 84100; 84134; 84255; 84425; 84443; 84590; 84630; 85027; 85610; 85730

== ENCOUNTER → 2023-11-12 | Outpatient (CLI) | payer BC ==
--- NOTE | 2023-11-12 13:20 | P.BASOAP ---
Subjective Progress Note Date: 11/12/23 Drink more fluids 100 oz. Start probiotic or prebioitic. Only drinking 40 oz of fluids. She is off all diabetic medications. NO GERD. No dysphagia. She has constipation. Assessment/Plan Plan: Date: Initial Weight: 91.626 kg Initial BMI: Current Weight: Current BMI: Type of Surgery: Total Volume in Band: Previous Volume: Volume Removed: Volume Added: Band Size:
[2023-11-12 13:40] VITALS: BP 108/69; PULSE 80; TEMP 97.6; BMI 27.9
[2023-11-12 14:10] LABS: Partial Thromboplastin Time 32.2 sec (22.0-30.0)
[2023-11-12 18:35] LABS: HCT 34.3 % (37.2-46.3); HGB 12.4 g/dL (12.0-15.0); MCH 34.2 pg (27.0-32.0); MCHC 36.2 g/dL (32.0-37.0); MCV 94.5 FL (80.0-97.0); Mean Platelet Volume 10.9 FL (9.5-12.2); NRBC Per 100 WBC 0 X 10*3/uL (0.00-0.01); Platelet Count 199 X 10*3/uL (140-440); RBC 3.63 X 10*6/uL (4.10-5.20); RDW 13.8 % (11.5-14.5); WBC 10.17 X 10*3/uL (4.50-10.00)
[2023-11-12 19:12] LABS: % Iron Saturation 13.77 (12.00-45.00); ALT 41 U/L (8-44); AST 27 U/L (13-35); Albumin 4.2 g/dL (3.8-4.9); Albumin/Globulin Ratio 1.68 Ratio (1.60-3.17); Alkaline Phosphatase 99 U/L (41-126); Blood Urea Nitrogen 9.9 mg/dL (9.0-27.0); Calcium 9.5 mg/dL (8.7-10.3); Carbon Dioxide 25.2 mmol/L (21.6-31.8); Chloride 104 mmol/L (96-109); Chol/HDL Ratio 2.61 Ratio; Globulin 2.5 g/dL (1.6-3.3); Glucose 99 mg/dL (70-110); Iron 50 UG/DL (50-170); LDL Cholesterol,Calculated 27.7 mg/dL (0.0-131.0); Magnesium 1.8 mg/dL (1.5-2.4); Phosphorus 3.6 mg/dL (2.4-5.1); Potassium 3.7 mmol/L (3.5-5.5); Sodium 141 mmol/L (135-145); Total Bilirubin 0.4 mg/dL (0.3-1.2); Total Iron Binding Capacity 363 UG/DL (228-460); Total Protein 6.7 g/dL (6.2-8.2)
[2023-11-12 21:19] LABS: Prealbumin 21.1 mg/dL (18.0-42.0)
[2023-11-13 14:56] LABS: Zinc, Serum 100 ug/dL (60-130)
[2023-11-14 08:51] LABS: Vitamin A 42 ug/dL (38-106)
[2023-11-15 18:32] LABS: Selenium 108 mcg/L (63-160)
[2023-11-17 06:31] LABS: Vit B1(Thiamine) 54 ug/L (38-122)
== END ==
LOC: BARWHC3 12:50
PROVIDERS: ATTEND Surgery Plastic and Reconstructive Surgery
DX: E66.01 Morbid (severe) obesity due to excess calories (principal); Z71.3 Dietary counseling and surveillance; Z91.048 Other nonmedicinal substance allergy status; Z88.1 Allergy status to other antibiotic agents; Z88.0 Allergy status to penicillin; Z91.013 Allergy to seafood; Z87.891 Personal history of nicotine dependence
CPT/HCPCS: 80053; 80061; 82306; 82525; 82607; 82728; 82746; 83036; 83540; 83550; 83735; 83970; 84100; 84134; 84255; 84425; 84443; 84590; 84630; 85027; 85610; 85730; 97803; 99211

== ENCOUNTER → 2024-02-04 | Outpatient (CLI) | payer BC ==
--- NOTE | 2024-02-04 16:59 | P.BASOAP ---
Subjective Progress Note Date: 02/04/24 She is off her all diabetic medications. She lost 50 pounds. Highest 215 pounds. She is at her goal. She has much energy. She is doing well. She is not out of breath. SHe was 325 pounds in 2009. She had depression in the past. She then lost to 150 pounds. Objective - Vital Signs Vital signs: Vital Signs Temp 98 F 02/04/24 16:43 Pulse 71 02/04/24 16:43 Resp 14 02/04/24 16:43 BP 101/68 02/04/24 16:43 Pulse Ox FiO2 Intake & Output 02/03/24 02/04/24 02/04/24 18:59 06:59 18:59 Weight 73.482 kg Assessment/Plan Plan: Date: 02/04/24 Initial Weight: 91.626 kg Initial BMI: 32.5 Current Weight: 73.482 kg Current BMI: 26.1 Type of Surgery: Total Volume in Band: Previous Volume: Volume Removed: Volume Added: Band Size:
[2024-02-04 17:01] VITALS: BP 101/68; PULSE 71; RESP 14; TEMP 98; BMI 26.1
== END | disposition home or self-care (01) ==
LOC: BARWHC3 16:27
PROVIDERS: ATTEND Surgery Plastic and Reconstructive Surgery
DX: E66.9 Obesity, unspecified (principal); E11.9 Type 2 diabetes mellitus without complications; Z68.26 Body mass index [BMI] 26.0-26.9, adult; Z86.59 Personal history of other mental and behavioral disorders; Z91.013 Allergy to seafood; Z91.09 Other allergy status, other than to drugs and biological substances; Z87.891 Personal history of nicotine dependence; Z88.0 Allergy status to penicillin; Z88.1 Allergy status to other antibiotic agents
CPT/HCPCS: 99211

== ENCOUNTER → 2024-03-10 | Outpatient (CLI) | payer BC ==
[2024-03-10 08:08] LABS: INR 0.9 (<1.2); Partial Thromboplastin Time 28.2 sec (22.0-30.0); Prothrombin Time 10.5 sec (10.0-12.5)
[2024-03-10 10:14] LABS: Basophils # (A) 0.05 X 10*3/uL (0.00-0.10); Basophils % (A) 0.8 %; Eosinophils # (A) 0.27 X 10*3/uL (0.04-0.35); Eosinophils % (A) 4.2 %; HGB 13.2 g/dL (12.0-15.0); Lymphocytes # (A) 1.96 X 10*3/uL (0.90-5.00); Lymphocytes % (A) 30.6 %; MCH 35.6 pg (27.0-32.0); MCHC 36.7 g/dL (32.0-37.0); Mean Platelet Volume 10.5 FL (9.5-12.2); Monocytes % (A) 6.3 %; NRBC Per 100 WBC 0 X 10*3/uL (0.00-0.01); Neutrophils # (A) 3.71 X 10*3/uL (1.80-7.70); Neutrophils % (A) 57.9 %; Platelet Count 220 X 10*3/uL (140-440); RBC 3.71 X 10*6/uL (4.10-5.20); RDW 13.2 % (11.5-14.5)
[2024-03-10 10:40] LABS: Prealbumin 23.6 mg/dL (18.0-42.0)
[2024-03-10 11:01] LABS: % Iron Saturation 14.87 (12.00-45.00); ALT 23 U/L (8-44); AST 20 U/L (13-35); Albumin 4.4 g/dL (3.8-4.9); Albumin/Globulin Ratio 1.76 Ratio (1.60-3.17); Alkaline Phosphatase 107 U/L (41-126); BUN/Creat Ratio 21.83 Ratio (12.00-20.00); Blood Urea Nitrogen 13.1 mg/dL (9.0-27.0); Calcium 9.8 mg/dL (8.7-10.3); Carbon Dioxide 25.8 mmol/L (21.6-31.8); Chloride 99 mmol/L (96-109); Chol/HDL Ratio 3.22 Ratio; Ferritin 69.3 ng/mL (10.0-291.0); Globulin 2.5 g/dL (1.6-3.3); Glucose 190 mg/dL (70-110); Iron 62 UG/DL (50-170); LDL Cholesterol,Calculated 79.9 mg/dL (0.0-131.0); Magnesium 1.8 mg/dL (1.5-2.4); Phosphorus 4.4 mg/dL (2.4-5.1); Potassium 4.2 mmol/L (3.5-5.5); Sodium 137 mmol/L (135-145); Total Bilirubin 0.3 mg/dL (0.3-1.2); Total Iron Binding Capacity 417 UG/DL (228-460); Total Protein 6.9 g/dL (6.2-8.2)
[2024-03-11 12:09] LABS: Zinc, Serum 118 ug/dL (60-130)
[2024-03-12 11:24] LABS: Vitamin A 53 ug/dL (38-106)
[2024-03-12 11:35] LABS: Vit B1(Thiamine) 46 ug/L (38-122)
== END | disposition home or self-care (01) ==
LOC: LABPAT 07:01
PROVIDERS: ATTEND Orthopaedic Surgery Hand Surgery
DX: Z01.812 Encounter for preprocedural laboratory examination (principal); K74.1 Hepatic sclerosis; K91.2 Postsurgical malabsorption, not elsewhere classified; D50.8 Other iron deficiency anemias; E89.1 Postprocedural hypoinsulinemia; E45 Retarded development following protein-calorie malnutrition; E44.0 Moderate protein-calorie malnutrition; E55.9 Vitamin D deficiency, unspecified; N19 Unspecified kidney failure; T56.894A Toxic effect of other metals, undetermined, initial encounter; K50.90 Crohn's disease, unspecified, without complications; M65.311 Trigger thumb, right thumb; R22.32 Localized swelling, mass and lump, left upper limb
CPT/HCPCS: 36415; 80053; 80061; 82306; 82525; 82607; 82728; 82746; 83036; 83540; 83550; 83735; 83970; 84100; 84134; 84255; 84425; 84443; 84590; 84630; 85025; 85610; 85730

== ENCOUNTER 2024-04-07 08:23 | Day surgery (SDC) | payer BC ==
--- NOTE | 2024-04-06 13:55 | P.HPOR ---
History of Present Illness H&P Date: 04/06/24 Subjective: This is a 53 year old female that presents today for follow up evaluation regarding a several year history of intermittent right index finger pain with swelling and tenderness and also a new left wrist mass on the back of her wrist that has been present for several months. She works as a massage therapist and often notes that the finger will become swollen and painful after use. She denies any locking or catching. She denies any inciting event or injury. She d enies any numbness or tingling. She underwent an HCI on 11/17/23 and noticed complete temporary relief from her symptoms. Her left wrist mass has caused pain with wearing a watch and she has to shift the watch higher so the mass does not contact the band, it is mainly painful when she puts pressure on the mass. Physical Examination: RUE: AIN/PIN/Radial/Ulnar/Median motor intact. Radial/Ulnar/Median SILT. 2+/4 Radial/Ulnar pulses palpated. 5/5 APB, 5/5 FDI. Negative Finkelsteins, negative CMC grind, negative Durkan's compression. TTP over index finger A1 favio. No locking clicking or catching of index finger. LUE: AIN/PIN/Radial/Ulnar/Median motor intact. Radial/Ulnar/Median SILT. 2+/4 Radial/Ulnar pulses palpated. 5/5 APB, 5/5 FDI. Negative Finkelsteins, negative CMC grind, negative Durkan's compression.1cm firm round mobile mass in soft tissues superficial to dorsal extensor tendons. Impression: 1.) Right index finger stenosing tenosynovitis 2.) Left wrist soft tissue mass Plan: Diagnosis and treatment options were discussed with the patient. She has failed conservative treatment and wishes to pursue a right index finger A1 favio release and a left wrist soft tissue mass excision. Risks and benefits of surgery including bleeding, infection, damage to surrounding tissue, need for further surgery, residual numbness were discussed and the patient wished to go forward with surgery. The patient was agreeable with this plan. -Deion Baum DO Orthopedic Hand/Upper Extremity Surgeon Past Medical History Past Medical History: Atrial Flutter, Asthma, Diabetes Mellitus, Hyperlipidemia, Osteoarthritis (OA) Additional Past Medical History / Comment(s): kidney stones, environmental allergies,vertigo when looking up or turning head to right, states takes losartan for hypotension, ?insulin resistant diabetes - no medications seem to work, pt. has been on low carb diet for 2 weeks, has lost 13 lbs and CBG still 250 History of Any Multi-Drug Resistant Organisms: None Reported Past Surgical History: Bariatric Surgery, Breast Surgery, Cardiac Ablation, Hysterectomy, Joint Replacement, Orthopedic Surgery Additional Past Surgical History / Comment(s): bilat. breast reduction, 02/12/21 cardiac ablation, oophorectomy, bilat. knee arthroscopies, Lt. TKR. Gastric sleeve 2022. Past Anesthesia/Blood Transfusion Reactions: No Reported Reaction Additional Past Anesthesia/Blood Transfusion Reaction / Comment(s): Anxiety w/ anesthesia - fear of not waking up Smoking Status: Former smoker - Past Family History Father Family Medical History: Cancer Additional Family Medical History / Comment(s): Cancer Lt. eye & lung. age 39 Mother Family Medical History: AICD/Pacemaker Additional Family Medical History / Comment(s): Mother's sister had CVA Brother(s) Family Medical History: Hyperlipidemia, Hypertension Medications and Allergies Home Medications Medication Instructions Recorded Confirmed Type Albuterol Inhaler [Ventolin Hfa 2 puff INHALATION RT-TID PRN 12/11/20 04/02/24 History Inhaler] Budesonide/Formoterol Fumarate 2 puff INHALATION BID PRN 12/11/20 04/02/24 History [Symbicort 80-4.5 Mcg Inhaler] Azelastine HCl [Astepro] 1 spray NASAL BID 08/12/22 04/02/24 History Losartan [Cozaar] 50 mg PO HS 08/12/22 04/02/24 History Acetaminophen Tab [Tylenol] 1,000 mg PO Q6HR PRN #30 tablet 08/12/23 04/02/24 Rx Atorvastatin [Lipitor] 10 mg PO HS 09/10/23 04/02/24 History Dabigatran [Pradaxa] 150 mg PO BID 09/10/23 04/02/24 History Biotin(Unk) 1 tab PO DAILY 04/02/24 04/02/24 History Calcium(Unk) 1 tab PO DAILY 04/02/24 04/02/24 History Multivitamins, Thera [Multivitamin 1 tab PO DAILY 04/02/24 04/02/24 History (formulary)] Vit C (Unk) 1 tab PO DAILY 04/02/24 04/02/24 History Allergies Allergy/AdvReac Type Severity Reaction Status Date / Time adhesive tape AdvReac Rash/Hives Verified 04/02/24 11:25 amoxicillin [From Augmentin] AdvReac severe Verified 04/02/24 11:25 Diarrhea clavulanic acid AdvReac severe Verified 04/02/24 11:25 [From Augmentin] Diarrhea Fish Containing Products AdvReac Unknown Verified 04/02/24 11:25 Physical Examination Osteopathic Statement: *. No significant issues noted on an osteopathic structural exam other than those noted in the History and Physical/Consult.
[~2024-04-07 08:23] MED LIST changes: -ACETAMINOPHEN TAB 500 MG TAB PO PRN; -ALVIMOPAN 12 MG CAPSULE PO PRN; -CHLORHEXIDINE GLUCONATE 15 ML CUP MUCOUS MEM PRN; -ENOXAPARIN 40 MG/0.4 ML SYRINGE SQ PRN; -MIDAZOLAM 2 MG/2 ML VIAL IV PRN; +ONDANSETRON 4 MG/2 ML VIAL IVP ONE; -ONDANSETRON 4 MG/2 ML VIAL IVP PRN; -PANTOPRAZOLE 40 MG/10 ML VIAL IVP PRN; +Pre Op ABX Message 1 EACH MISC MISCELLANE ONE; -SCOPOLAMINE 1 MG/72 HR PATCH TRANSDERM STA; +fentaNYL (PF) 50 MCG/ML 2 ML AMP IV PRN
[2024-04-07 08:50] VITALS: TEMP 97.1
[2024-04-07] MEDS: LACTATED RINGERS 1,000 ML IV SCH (09:03)
[2024-04-07] MEDS: IV FLUID CONTINUATION 1,000 ML IV ONE (09:03)
[2024-04-07] MEDS: ONDANSETRON 4 MG/2 ML VIAL IVP ONE (09:09)
[2024-04-07] MEDS: DEXAMETHASONE SOD PHOSPHATE 4 MG/ML 1 ML VIAL IV ONE (09:09)
[2024-04-07] MEDS: MIDAZOLAM 2 MG/2 ML VIAL IV ONE (09:10)
[2024-04-07 09:16] LABS: Glucose,Whole Blood 106 mg/dL (70-110)
[2024-04-07] MEDS ORDERED: MIDAZOLAM 2 MG/2 ML VIAL ONE (09:34)
[2024-04-07] MEDS ORDERED: PROPOFOL 10 MG/ML 20 ML VIAL IV ONE (09:34)
[2024-04-07] MEDS ORDERED: fentaNYL (PF) 50 MCG/ML 2 ML AMP ONE (09:34)
[2024-04-07] MEDS ORDERED: LIDOCAINE 1% INJ 10MG/ML (20 ML MDV) ONE (09:34)
[2024-04-07] MEDS: BUPIVACAINE (PF) 0.5% 30 ML VIAL SQ ONE (09:45)
[2024-04-07] MEDS: LIDOCAINE 2% INJ 20 MG/ML SQ ONE (09:45)
[2024-04-07 10:16] VITALS: BP 106/66; PULSE 62; RESP 14
--- NOTE | 2024-04-07 20:12 | P.OP ---
Date of Procedure: 04/07/24 Preoperative Diagnosis: 1.) Right index finger stenosing tenosynovitis 2.) Left wrist soft tissue mass Postoperative Diagnosis: 1.) Right index finger stenosing tenosynovitis 2.) Left wrist soft tissue mass Procedure(s) Performed: 1.) Right index finger A1 favio release 2.) Left wrist soft tissue mass excision 4x4mm, subfascial. Anesthesia: MAC Surgeon: Deion Baum Outside Sales Professional #1: Lavon Perez Estimated Blood Loss (ml): 0 Pathology: none sent Condition: stable Disposition: PACU Description of Procedure: This is a 53 year old female who presents today for a right index finger trigger finger A1 favio release and a left wrist soft tissue mass excision after having failed conservative treatment. Risks and benefits of surgery were discussed with the patient including bleeding, damage to surrounding tissue, infection, need for further surgery as well as risks of anesthesia including pulmonary embolism and even and the patient wished to proceed with surgical intervention. The patient was seen in the pre-operative area by myself. Consent and H&P were completed and updated. The correct extremity was marked in the pre-operative area by myself and all other questions were answered. Operative Narrative: The patient was brought to the operating room by the department of anesthesia. They remained on the portable stretcher and a rolling hand table was brought to the side both sides since bilateral procedure was being performed. Pre-operative time out was performed indicating the correct patient, procedure. All in the room agreed. The patient was then drifted off to sleep by the department of anesthesia. MAC anesthesia was utilized and a 50:50 mixture of 1% Lidocaine and 0.5% bupivacaine was injected into the subcutaneous tissues of the palmar skin, 4ccs total for the right index finger and 8cc's for the left dorsal wrist. A nonsterile tourniquet was then applied to both upper extremities and both upper extremity were then prepped and draped in normal sterile fashion. The right operative extremity was the exsanguinated with an esmarch bandage and the tourniquet was inflated to 250mmHg. Oblique incision was made at the base of the right index finger. Blunt dissection was taken down to the level of the A1 favio. Ragnell retractors were placed both radially and ulnarly to protect neurovascular bundles. Littler tenotomy scissors were then used to release the A1 favio from proximal to dist al under direct visualization. Proximal fascial attachments were released. The tendon was then taken through range of motion and no locking or catching was appreciated. The wound was then closed with interrupted 4-0 nylon sutures in a horizontal mattress fashion. Sterile dressing consisting of adaptic, 4x4s, webril, and an [place] wrap was applied. Tourniquet was let down and the hand was well perfused. Attention was then drawn to the left dorsal wrist. A transverse incision was made over the dorsal extensor retinaculum over the area of the mass. Blunt dissection was taken down through subcutaneous tissues with tenotomy scissors. Upon further dissection, there was a 4 x 4 mm round clear gelatinous mass extruding through the extensor retinaculum. This was sharply dissected off the superior aspect of the extensor retinaculum taking care of to preserve the extensor tendons deep to the mass. The mass was and collected and sent for pathology. Skin closure was performed with4-0 nylon suture in a horizontal mattress fashion. Sterile dressing consisting of adaptic, 4x4s, webril, and an [place] wrap was applied. Tourniquet was let down and the hand was well perfused. The patient was then woken by the department of anesthesia and transferred to PACU in stable condition. Lavon WINSLOW was present during the case to assist in retraction and manipulation of the hand as well as assistance in dressing application. Deion Baum D.O. Orthopedic Hand/Upper Extremity Surgeon
== END 2024-04-07 11:06 | disposition home or self-care (01) ==
LOC: OR 08:23
PROVIDERS: ATTEND Orthopaedic Surgery Hand Surgery
DX: M65.321 Trigger finger, right index finger (principal); M65.841 Other synovitis and tenosynovitis, right hand; M19.90 Unspecified osteoarthritis, unspecified site; J45.909 Unspecified asthma, uncomplicated; E78.5 Hyperlipidemia, unspecified; E11.9 Type 2 diabetes mellitus without complications; Z79.02 Long term (current) use of antithrombotics/antiplatelets; Z79.51 Long term (current) use of inhaled steroids; Z87.442 Personal history of urinary calculi; Z87.891 Personal history of nicotine dependence; Z88.0 Allergy status to penicillin; Z88.1 Allergy status to other antibiotic agents; Z98.84 Bariatric surgery status; Z90.722 Acquired absence of ovaries, bilateral; Z79.899 Other long term (current) drug therapy
CPT/HCPCS: 26115; 25000; J2001 ×2; J2250; J1100; J2405; J3010; J2704; J0665

== ENCOUNTER → 2024-06-02 | Outpatient (CLI) | payer BC ==
--- NOTE | 2024-06-03 10:21 | MM ---
Reason for Exam: Screening (asymptomatic). Last mammogram was performed 3 year(s) and 11 month(s) ago. Patient History: Menarche at age 11. First Full-Term at age 22. Left ovary removed at age 38. Right ovary removed at age 38. Hysterectomy at age 38. Postmenopausal. Patient used Hormonal Contraceptives for 25 years. 1991, Bilateral Reduction. Bilateral Benign Excisional Biopsy. 10/21/2019, Benign Core Biopsy on the right side. Risk Values: Jeanette 5 year model risk: 1.6%. NCI Lifetime model risk: 10.9%. Prior Study Comparison: 10/06/2019 Bilateral Screening Mammogram, [facility]. 10/19/2019 Bilateral Diagnostic Mammogram, [facility]. 07/13/2020 Bilateral Diagnostic Mammogram, [facility]. Tissue Density: The breasts are heterogeneously dense, which may obscure small masses. Findings: Analyzed By CAD. There is no suspicious group of microcalcifications or new suspicious mass in either breast. Overall Assessment: Benign, BI-RAD 2 Management: Screening Mammogram of both breasts in 1 year. . Patient should continue monthly self-breast exams. A clinical breast exam by your physician is recommended on an annual basis. This exam should not preclude additional follow-up of suspicious palpable abnormalities. Note on Jeanette scores and lifetime risk: 1. A Jeanette score greater than 3% is considered moderate risk. If this is the case, consider specialist referral to assess eligibility for a risk reducing agent. 2. If overall lifetime risk for the development of breast cancer is 20% or higher, the patient may qualify for future screening with alternating mammogram and breast MRI. Electronically signed and approved by: Edwin Gonzalez M.D. Radiologis
== END | disposition home or self-care (01) ==
LOC: RADMAMWWP 08:30
PROVIDERS: ATTEND Family Medicine
DX: Z12.31 Encounter for screening mammogram for malignant neoplasm of breast
CPT/HCPCS: 77063; 77067

== ENCOUNTER → 2024-08-04 | Outpatient (CLI) | payer BC ==
[2024-08-04 17:04] VITALS: BP 110/66; PULSE 61; RESP 16; TEMP 97.9; BMI 25.8
--- NOTE | 2024-08-04 17:11 | P.BASOAP ---
Subjective Progress Note Date: 08/04/24 SHe has side effects from weight loss drugs. BSG is 120s. Not under 100. She is stable. She just started hot flashes. Labs reviewed. No GERD. Occasional hiccups. Objective - Vital Signs Vital signs: Vital Signs Temp 97.9 F 08/04/24 16:59 Pulse 61 08/04/24 16:59 Resp 16 08/04/24 16:59 BP 110/66 08/04/24 16:59 Pulse Ox FiO2 Intake & Output 08/03/24 08/04/24 08/04/24 18:59 06:59 18:59 Weight 72.575 kg Assessment/Plan Plan: Date: 08/04/24 Initial Weight: 91.626 kg Initial BMI: 32.5 Current Weight: 72.575 kg Current BMI: 25.8 Type of Surgery: Total Volume in Band: Previous Volume: Volume Removed: Volume Added: Band Size:
== END ==
LOC: BARWHC3 15:55
PROVIDERS: ATTEND Surgery Plastic and Reconstructive Surgery
DX: E66.01 Morbid (severe) obesity due to excess calories (principal); Z91.048 Other nonmedicinal substance allergy status; Z88.0 Allergy status to penicillin; Z88.8 Allergy status to other drugs, medicaments and biological substances; Z91.013 Allergy to seafood; Z68.25 Body mass index [BMI] 25.0-25.9, adult; Z87.891 Personal history of nicotine dependence
CPT/HCPCS: 99211

== ENCOUNTER → 2024-08-31 | Outpatient (CLI) | payer BC ==
[2024-08-31 10:00] LABS: INR 0.9 (<1.2); Partial Thromboplastin Time 26.8 sec (22.0-30.0); Prothrombin Time 10.4 sec (10.0-12.5)
[2024-08-31 15:55] LABS: HCT 37.8 % (37.2-46.3); HGB 13.4 g/dL (12.0-15.0); MCH 33.7 pg (27.0-32.0); MCHC 35.4 g/dL (32.0-37.0); Mean Platelet Volume 10.2 FL (9.5-12.2); NRBC Per 100 WBC 0 X 10*3/uL (0.00-0.01); Platelet Count 276 X 10*3/uL (140-440); RBC 3.98 X 10*6/uL (4.10-5.20); RDW 13.2 % (11.5-14.5); WBC 6.42 X 10*3/uL (4.50-10.00)
[2024-08-31 16:24] LABS: Prealbumin 25.5 mg/dL (18.0-42.0)
[2024-08-31 16:46] LABS: Chol/HDL Ratio 3.61 Ratio; LDL Cholesterol,Calculated 95.8 mg/dL (0.0-131.0)
[2024-08-31 16:47] LABS: % Iron Saturation 21.16 (12.00-45.00); ALT 25 U/L (8-44); AST 24 U/L (13-35); Albumin 4.3 g/dL (3.8-4.9); Albumin/Globulin Ratio 1.59 Ratio (1.60-3.17); Alkaline Phosphatase 106 U/L (41-126); Calcium 9.8 mg/dL (8.7-10.3); Carbon Dioxide 28.4 mmol/L (21.6-31.8); Chloride 105 mmol/L (96-109); Ferritin 52.7 ng/mL (10.0-291.0); Globulin 2.7 g/dL (1.6-3.3); Glucose 107 mg/dL (70-110); Iron 91 UG/DL (50-170); Magnesium 1.9 mg/dL (1.5-2.4); Phosphorus 4.5 mg/dL (2.4-5.1); Potassium 4.3 mmol/L (3.5-5.5); Sodium 144 mmol/L (135-145); Total Bilirubin 0.3 mg/dL (0.3-1.2); Total Iron Binding Capacity 430 UG/DL (228-460)
[2024-09-01 12:54] LABS: Zinc, Serum 99 ug/dL (60-130)
[2024-09-02 07:47] LABS: Vit B1(Thiamine) 60 ug/L (38-122)
== END | disposition home or self-care (01) ==
LOC: LABWHC1 08:21
PROVIDERS: ATTEND Surgery Plastic and Reconstructive Surgery
DX: E66.01 Morbid (severe) obesity due to excess calories (principal); E89.1 Postprocedural hypoinsulinemia; D50.8 Other iron deficiency anemias; K90.89 Other intestinal malabsorption; E55.9 Vitamin D deficiency, unspecified; K74.1 Hepatic sclerosis; N19 Unspecified kidney failure; T56.894A Toxic effect of other metals, undetermined, initial encounter; K50.90 Crohn's disease, unspecified, without complications; Z68.26 Body mass index [BMI] 26.0-26.9, adult
CPT/HCPCS: 36415; 80053; 80061; 82306; 82525; 82607; 82728; 82746; 83036; 83540; 83550; 83735; 83970; 84100; 84134; 84255; 84425; 84443; 84590; 84630; 85027; 85610; 85730